=== PATIENT | male | born 1960 | race Caucasian/White ===

== ENCOUNTER 2022-11-24 22:21 | Emergency (ER) | payer BC, MEDICAID, SELFPAY ==
[2022-11-24 22:29] VITALS: BP 114/78; PULSE 81; RESP 16; TEMP 36.7; O2SAT 99; BMI 20.4
[2022-11-24 22:52] LABS: Glucose Point of Care > 600 mg/dL (70-110)
[2022-11-24 22:57] LABS: ABG PCO2 35.1 mmHg (35-45); ABG PH Result 7.46 (7.35-7.45); Arterial Blood Gas Hematocrit 39.7 % (42-52); Base Excess ABG 1.4 mmol/L (-2.0-2.0); Blood Gas Allen Test Pos; Blood Gas Sample Site Radial, right; Blood Gas Sample Type Arterial
--- NOTE | 2022-11-24 23:16 | ED_ITS ---
HPI - General Adult General: Chief complaint: General Medical Stated complaint: Blood surgar of 600 hour ago Time Seen by Provider: 11/24/22 22:46 Source: patient Mode of arrival: ambulatory Limitations: no limitations History of Present Illness: 62-year-old male who has been incarcerated for 6 months he states he has long history of diabetes but has not taken any diabetic meds for 2 years states that today he is having some slight dizziness to check his blood sugar was over 600 he states he does have a very high starch diet he has no other complaints at this time. Associated symptoms: Deny chest pain, dyspnea, headache(s), nausea, rash or vomiting Review of Systems Const: Denies: fever(s) or chills Eyes: Denies: blurry vision or eye discomfort ENMT: Denies: throat pain or dental pain Card: Denies: chest pain Resp: Denies: dyspnea GI: Denies: abdominal pain, nausea, vomiting or diarrhea : Denies: dysuria Musc: Denies: neck pain or back pain Skin/Breast: Denies: rash Neuro: Reports: dizziness; Denies: headache(s) Physical Exam Const: COMMON NORMALS: no acute distress, patient oriented x3 and healthy appe aring HENMT: COMMON NORMALS: normocephalic and atraumatic HEAD & SCALP: normocephalic and atraumatic Neck/C-Spine: COMMON NORMALS: full ROM and supple Chest: COMMONS NORMALS: normal inspection of the chest and normal palpation of entire chest wall Resp: COMMON NORMALS: normal respiratory effort, No retractions, No use of accessory muscles and clear to auscultation bilaterally AUSCULTATION: clear to auscultation bilaterally Cardio: COMMON NORMALS: regular rate, regular rhythm and No murmurs present (Cardio) RATE: regular rate RHYTHM: regular rhythm GI: COMMON NORMALS: Normal to inspection, nondistended, normoactive bowel sounds present, Soft to palpation, non-tender and no masses PALPATION: Yes Soft to palpation Extremity: COMMON NORMALS: normal to inspection and full ROM Neuro: COMMON NORMALS: patient oriented x3, moves all extremities and no focal motor deficits Psych: COMMON NORMALS: mental status grossly normal, Normal thought process present and cooperative THOUGHT PROCESS: Normal thought process present Skin: COMMON NORMALS: no rashes or lesions noted and no wounds GENERAL SKIN EXAM: no rashes or lesions noted Course Vital Signs: Vital signs: Vital Signs Temperature 98.0 F 11/24/22 22:29 Pulse Rate 79 11/25/22 01:42 Respiratory Rate 16 11/25/22 01:42 Blood Pressure 111/73 11/25/22 01:42 Pulse Oximetry 98 11/25/22 01:42 MDM - General Adult Medical Decision Making Patient presents with hyperglycemia his blood sugar here is improved slightly been going on for some time his hemoglobin 1 AC is 13 he otherwise well-aleyda earing is a slight neutropenia we will start him on Lantus and metformin I informed him he needs to follow-up with PCP as well return if worsening. Medical Records I reviewed the patient's medical records. Lab Data I reviewed the patient's lab results. 11/24/22 23:33 11/24/22 23:33 Radiology Impressions Chest X-Ray 11/25/22 00:22 IMPRESSION: No acute cardiopulmonary disease. Laboratory Results WBC 2.6 10^3/uL (4.0-10.0) L 11/24/22 23:33 RBC 3.87 10^6/uL (4.1-5.3) L 11/24/22 23:33 Hgb 12.9 g/dL (11.7-16.6) 11/24/22 23:33 Hct 36.3 % (42.0-52.0) L 11/24/22 23:33 MCV 93.8 fl (80-94) 11/24/22 23:33 MCH 33.3 pg (28.0-34.0) 11/24/22 23: MCHC 35.5 g/dL (30.0-36.0) 11/24/22 23:33 RDW 13.9 % (12.1-15.1) 11/24/22 23:33 Plt Count 52 10^3/cmm (130-400) L 11/24/22 23:33 MPV 11.2 fL (7.4-10.4) H 11/24/22 23:33 Neut % (Auto) 36.2 % 11/24/22 23:33 Lymph % (Auto) 60.3 % 11/24/22 23:33 [place] % (Auto) 2.3 % 11/24/22 23:33 Eos % (Auto) 0.0 % 11/24/22 23:33 Baso % (Auto) 0.4 % 11/24/22 23:33 Neut # (Auto) 0.93 10^3/uL (1.8-7.7) L* 11/24/22 23:33 Lymph # (Auto) 1.6 10^3/uL (0.8-4.8) 11/24/22 23:33 [place] # (Auto) 0.1 10^3/uL (0.2-0.9) L 11/24/22 23:33 Eos # (Auto) 0.0 10^3/uL (0.0-0.8) 11/24/22 23: Baso # (Auto) 0.0 10^3/uL (0.0-0.1) 11/24/22 23:33 Nucleated RBC % (auto) 0 % 11/24/22 23: Nucleated RBCs # 0.0 /100WBC 11/24/22 23:33 Specimen Type Arterial 11/24/22 22:48 Sample Site Radial, right 11/24/22 22:48 ABG pH 7.46 (7.35-7.45) H 11/24/22 22:48 ABG pCO2 35.1 mmHg (35-45) 11/24/22 22:48 ABG pO2 96.0 mmHg (80.0-100.0) 11/24/22 22:48 ABG HCO3 25.0 mmol/L (22-26) 11/24/22 22:48 ABG Base Excess 1.4 mmol/L (-2.0-2.0) 11/24/22 22:48 Nestor Test Pos 11/24/22 22:48 Hematocrit 39.7 % (42-52) L 11/24/22 22:48 O2 Delivery Device None 11/24/22 22:48 FiO2 21.0 % 11/24/22 22:48 Court Specialist ID [email or web address] 11/24/22 22:48 Sodium 135 mmol/L (136-145) L 11/24/22 23:33 Potassium 4.1 mmol/L (3.5-5.1) 11/24/22 23:33 Chloride 100 mmol/L (98-107) 11/24/22 23:33 Carbon Dioxide 29 mmol/L (22-29) 11/24/22 23:33 Anion Gap 10.1 (5-19) 11/24/22 23:33 BUN 8 mg/dL (8-23) 11/24/22 23:33 Creatinine 0.7 mg/dL (0.7-1.2) 11/24/22 23:33 GFR Calculation 115.0 mL/min (90-130) 11/24/22 23:33 Glucose 823 mg/dL (65-115) H* 11/24/22 23:33 POC Glucose 417 mg/dL (70-110) H 11/25/22 01:33 Estimat Average Glucose 349 11/24/22 23:33 Hemoglobin A1c 13.8 % (4.0-6.0) H 11/24/22 23:33 Calculated Osmolality 319 mOsm/kg (285-295) H 11/24/22 23:33 Calcium 8.8 mg/dL (8.5-10.5) 11/24/22 23:33 Total Bilirubin 2.1 mg/dL (0.15-1.2) H 11/24/22 23:33 AST 51 U/L (0-40) H 11/24/22 23:33 ALT 36 U/L (0-41) 11/24/22 23:33 Alkaline Phosphatase 349 U/L (40-130) H 11/24/22 23:33 Total Protein 7.0 g/dL (6.6-8.7) 11/24/22 23:33 Albumin 3.2 g/dL (3.5-5.2) L 11/24/22 23:33 Globulin 3.8 g/dL (1.3-4.6) 11/24/22 23:33 Serum Ketones Negative (Negative) 11/24/22 23:33 Discharge Plan Discharge Patient Disposition: Home Clinical Impression: Hyperglycemia Condition: Stable Prescriptions: New metformin 500 mg tablet 500 mg PO BID Qty: 60 0RF Lantus U-100 Insulin 100 unit/mL solution 10 unit SUBCUT QPM Qty: 10 3RF Discharge Orders: Discharge ED (Routine); Ordered 11/25/22 Ordered By: Allyson Jj Discharge Diet: Advance as tolerated Discharge Activity: Resume usual activity Patient Instructions: Diabetic Hyperglycemia (ED) Coding Level of Care Code ED [employer]p [employer] for Chg Curt
[2022-11-24] MEDS: sodium chloride 0.9% 1,000 ML 999 ML IV (23:22)
[2022-11-24] MEDS: insulin regular-human 100 units/1 mL 15 UNIT IVP (23:23)
[2022-11-24 23:39] LABS: Basophils % 0.4 %; Hematocrit 36.3 % (42.0-52.0); Hemoglobin 12.9 g/dL (11.7-16.6); Lymphocytes # 1.6 10^3/uL (0.8-4.8); Lymphocytes % 60.3 %; Mean Corpuscular HGB Conc 35.5 g/dL (30.0-36.0); Mean Corpuscular Hemoglobin 33.3 pg (28.0-34.0); Mean Corpuscular Volume 93.8 fl (80-94); Mean Platelet Volume 11.2 fL (7.4-10.4); Monocytes # 0.1 10^3/uL (0.2-0.9); Monocytes % 2.3 %; Neutrophils % 36.2 %; Nucleated Red Blood Cells % 0 %; Platelet Count 52 10^3/cmm (130-400); Red Blood Count 3.87 10^6/uL (4.1-5.3); Red Cell Distribution Width 13.9 % (12.1-15.1); White Blood Count 2.6 10^3/uL (4.0-10.0)
[2022-11-24 23:52] LABS: Ketone (Acetest) Serum Negative (Negative)
[2022-11-25 00:03] VITALS: BP 105/67; PULSE 74; RESP 16; O2SAT 99
[2022-11-25 00:03] LABS: Glucose Point of Care > 600 mg/dL (70-110)
[2022-11-25 00:06] LABS: Alanine Aminotransferase 36 U/L (0-41); Anion Gap 10.1 (5-19); Blood Urea Nitrogen 8 mg/dL (8-23); Calcium 8.8 mg/dL (8.5-10.5); Carbon Dioxide 29 mmol/L (22-29); Chloride 100 mmol/L (98-107); Globulin 3.8 g/dL (1.3-4.6); Potassium 4.1 mmol/L (3.5-5.1); Slide Review Slide Review Perform
[2022-11-25] MEDS: insulin regular-human 100 units/1 mL 10 UNIT IVP (00:06)
[2022-11-25 00:07] LABS: Neutrophils # 0.93 10^3/uL (1.8-7.7)
[2022-11-25 00:16] LABS: Albumin Level 3.2 g/dL (3.5-5.2); Alkaline Phosphatase 349 U/L (40-130); Aspartate Amino Transferase 51 U/L (0-40); Osmolality Calculated 319 mOsm/kg (285-295); Sodium 135 mmol/L (136-145); Total Bilirubin 2.1 mg/dL (0.15-1.2)
[2022-11-25 00:18] LABS: Glucose 823 mg/dL (65-115)
--- NOTE | 2022-11-25 00:22 | XRR_ITS ---
PROCEDURE INFORMATION: Exam: XR Chest Exam date and time: 11/25/2022 12:28 AM Age: 62 years old Clinical indication: Other: Hyperglycemia TECHNIQUE: Imaging protocol: Radiologic exam of the chest. Views: 1 view. COMPARISON: No relevant prior studies available. FINDINGS: Lungs: There are no infiltrates. Pleural spaces: There are no pleural effusions. There is no pneumothorax. Heart/Mediastinum: Cardiac mediastinal silhouette is within normal limits. Vasculature: The descending thoracic aorta is prominent. Bones/joints: There is degenerative disease of the joints with no fractures noted. Intraperitoneal space: There is no free intraperitoneal air. XR/XR chest 1V portable [id number] IMPRESSION: No acute cardiopulmonary disease.
[2022-11-25] MEDS: sodium chloride 0.9% 1,000 ML 999 ML IV (00:29)
[2022-11-25 00:44] LABS: Glucose Point of Care 513 mg/dL (70-110)
[2022-11-25 01:36] LABS: Glucose Point of Care 417 mg/dL (70-110)
[2022-11-25] MEDS: insulin regular-human 100 units/1 mL 8 UNIT IVP (01:40)
[2022-11-25 01:42] VITALS: BP 111/73; PULSE 79; RESP 16; O2SAT 98
[2022-11-25 01:57] LABS: Estmated Average Glucose 349; Hemoglobin A1C 13.8 % (4.0-6.0)
[2022-11-25 02:00] VITALS: BP 105/69; PULSE 88; RESP 16; O2SAT 99
== END 2022-11-25 02:15 | disposition home or self-care (01) ==
PROVIDERS: Emergency Provider Emergency Medicine
DX: E11.65 Type 2 diabetes mellitus with hyperglycemia (principal)
CPT/HCPCS: 36415; 36416; 36600; 71045; 80053; 82009; 82803; 82962; 83036; 85025; 96374; 96376; 99284; J1815; J7030

== ENCOUNTER 2022-11-26 03:39 | Inpatient (IN) | payer BC, MEDICAID, SELFPAY ==
[2022-11-26] VITALS (26 sets, daily range): BP systolic 84–118; BP diastolic 62–85; PULSE 63–86; RESP 12–39; TEMP 36.4–36.6; O2SAT 91–99; BMI 22.4
--- NOTE | 2022-11-26 03:44 | XRR_ITS ---
PROCEDURE INFORMATION: Exam: XR Chest Exam date and time: 11/26/2022 3:47 AM Age: 62 years old Clinical indication: Other: AMS; Patient HX: Arrival via EMS for severe confusion and unresponsiveness. TECHNIQUE: Imaging protocol: Radiologic exam of the chest. Views: 1 view. COMPARISON: CR (CHEST, ) 11/25/2022 12:28 AM FINDINGS: Lungs: There are low lung volumes. Otherwise, the lungs are clear. Pleural spaces: Unremarkable. No pleural effusion. No pneumothorax. Heart/Mediastinum: Unremarkable. No cardiomegaly. Bones/joints: Unremarkable. XR/XR chest 1V portable [id number] IMPRESSION: There are low lung volumes. Otherwise, the lungs are clear.
--- NOTE | 2022-11-26 03:44 | CTR_ITS ---
PROCEDURE INFORMATION: Exam: CTA Head With Contrast, Arteriography Exam date and time: 11/26/2022 4:15 AM Age: 62 years old Clinical indication: Stroke-like symptoms; Altered mental status/memory loss and drowsines/somnolence; Additional info: CVA TECHNIQUE: Imaging protocol: Computed tomographic angiography of the head with contrast. Exam focused on the arteries. 3D rendering (Not supervised by radiologist): MIP and/or 3D reconstructed images were created by the technologist. Radiation optimization: All CT scans at this facility use at least one of these dose optimization techniques: automated exposure control; mA and/or kV adjustment per patient size (includes targeted exams where dose is matched to clinical indication); or iterative reconstruction. Contrast material: OMNI 350; Contrast volume: 100 ml; Contrast route: INTRAVENOUS (IV); REPORTING DATA: Count of CT and Cardiac NM exams in prior 12 months: This patient has received 0 known CTs and 0 known cardiac nuclear medicine studies in the 12 months prior to the current study. COMPARISON: CT head wo con* [id number] 11/26/2022 4:12 AM RADIATION DOSE METRICS: Total DLP (mGy-cm): 430.51 FINDINGS: ANTERIOR CIRCULATION: Right internal carotid artery: Intracranial segment is patent with no significant stenosis. No aneurysm. Right middle cerebral artery: No occlusion or significant stenosis. No aneurysm. Right anterior cerebral artery: No occlusion or significant stenosis. No aneurysm. Left internal carotid artery: Intracranial segment is patent with no significant stenosis. No aneurysm. Left middle cerebral artery: No occlusion or significant stenosis. No aneurysm. Left anterior cerebral artery: No occlusion or significant stenosis. No aneurysm. POSTERIOR CIRCULATION: Right vertebral artery: No occlusion or significant stenosis. No aneurysm. Left vertebral artery: No occlusion or significant stenosis. No aneurysm. Basilar artery: No occlusion or significant stenosis. No aneurysm. Right posterior cerebral artery: No occlusion or significant stenosis. No aneurysm. Left posterior cerebral artery: No occlusion or significant stenosis. No aneurysm. Brain: No definite mass, mass effect, or midline shift. Cerebral ventricles: No ventriculomegaly. Bones/joints: Unremarkable. No acute fracture. Soft tissues: Unremarkable. PROCEDURE INFORMATION: Exam: CTA Neck With Contrast Exam date and time: 11/26/2022 4:15 AM Age: 62 years old Clinical indication: Stroke-like symptoms; Altered mental status/memory loss and drowsines/somnolence; Additional info: CVA TECHNIQUE: Imaging protocol: Computed tomographic angiography of the neck with contrast. 3D rendering (Not supervised by radiologist): MIP and/or 3D reconstructed images were created by the technologist. Radiation optimization: All CT scans at this facility use at least one of these dose optimization techniques: automated exposure control; mA and/or kV adjustment per patient size (includes targeted exams where dose is matched to clinical indication); or iterative reconstruction. Contrast material: OMNI 350; Contrast volume: 100 ml; Contrast route: INTRAVENOUS (IV); REPORTING DATA: Count of CT and Cardiac NM exams in prior 12 months: This patient has received 0 known CTs and 0 known cardiac nuclear medicine studies in the 12 months prior to the current study. COMPARISON: CT head wo con* [id number] 11/26/2022 4:12 AM RADIATION DOSE METRICS: Total DLP (mGy-cm): 430.51 FINDINGS: Right common carotid artery: No stenosis. No dissection or occlusion. Right internal carotid artery: No stenosis of the extracranial segment. No dissection or occlusion. Right external carotid artery: No occlusion or stenosis of the origin. Left common carotid artery: No stenosis. No dissection or occlusion. Left internal carotid artery: No stenosis of the extracranial segment. No dissection or occlusion. Left external carotid artery: No occlusion or stenosis of the origin. Right vertebral artery: No stenosis. No dissection or occlusion. Left vertebral artery: No stenosis. No dissection or occlusion. Soft tissues: Normal. No significant soft tissue swelling. Bones/joints: No acute fracture. CT/CT angio headneck* [id number] IMPRESSION: No large vessel occlusion or stenosis. IMPRESSION: No vascular stenosis, occlusion or dissection. REFERENCES: NASCET CRITERIA. The degree of stenosis in the cervical segment of the internal carotid artery is based on NASCET criteria. Normal is no stenosis. Mild is less than 50% stenosis. Moderate is 50-69% stenosis. Severe is 70% to 99% stenosis. Total occlusion is no detectable patent lumen.
--- NOTE | 2022-11-26 03:44 | CTR_ITS ---
PROCEDURE INFORMATION: Exam: CT Head Without Contrast Exam date and time: 11/26/2022 4:12 AM Age: 62 years old Clinical indication: Stroke-like symptoms; Altered mental status/memory loss and drowsines/somnolence; Additional info: Arrival via EMS for severe confusion and unresponsiveness. TECHNIQUE: Imaging protocol: Computed tomography of the head without contrast. Radiation optimization: All CT scans at this facility use at least one of these dose optimization techniques: automated exposure control; mA and/or kV adjustment per patient size (includes targeted exams where dose is matched to clinical indication); or iterative reconstruction. Other technique: STROKE PROTOCOL was implemented. REPORTING DATA: Count of CT and Cardiac NM exams in prior 12 months: This patient has received 0 known CTs and 0 known cardiac nuclear medicine studies in the 12 months prior to the current study. COMPARISON: No relevant prior studies available. RADIATION DOSE METRICS: Total DLP (mGy-cm): 931 FINDINGS: Brain: No cerebral/cerebellar infarct. No brain parenchymal or extra-axial hemorrhage. Cerebral ventricles: No ventriculomegaly. Paranasal sinuses: Mucosal thickening present in both maxillary sinuses. Mastoid air cells: Visualized mastoid air cells are clear. Bones/joints: Unremarkable. No acute fracture. Soft tissues: Unremarkable. CT/CT head wo con* [id number] IMPRESSION: No acute infarct or hemorrhage. ASSESSMENT: ASPECTS ([place] Stroke Program Early CT Score) is 10.
--- NOTE | 2022-11-26 03:45 | ECG_ITS ---
[facility] Test Date: 2022-11-26 Pat Name: Poncho Marshall Department: Room: Gender: Male [employer]ographic [employer] Fe[employer]: : [id number] Requested By: Allyson Jj Order Number: [id number] Trisha MD: Corey Velásquez M.D. Measurements Intervals [place] Rate: 78 P: 0 IA: 0 QRS: 35 QRSD: 108 T: 53 QT: 396 QTc: 452 Interpretive Statements ATRIAL FIBRILLATION WITH ABERRANT CONDUCTION OR VENTRICULAR PREMATURE COMPLEXES LOW QRS VOLTAGE IN EXTREMITY LEADS [QRS DEFLECTION < 0.5 mV IN LIMB LEADS] NONSPECIFIC T-WAVE ABNORMALITY ABNORMAL RHYTHM ECG No previous ECG available for comparison Electronically Signed On 11-26-2022 9:24:10 CDT by Corey Velásquez M.D. [id number]
--- NOTE | 2022-11-26 03:47 | W.ED.AMS ---
HPI - Altered Mental Status General: Chief Complaint: Altered Mental Status Stated Complaint: HIGH BLOOD SUGAR Time Seen by Provider: 11/26/22 03:41 Source: EMS Mode of arrival: EMS Limitations: altered mental status History of Present Illness: 62-year-old male who is here from the long-term. He was seen last night for hyperglycemia patient's blood sugars improved he is not in DKA did prescribe him Lantus and metformin [facility] states that they have been giving his Lantus but states that the inmates and informed him that he is urinating all over and was altered gel staff here states that he was last seen normal around 7 to 8 PM. They checked his blood sugar it was at 500. Patient here is able to tell me his name he is very confused otherwise will not really follow any commands no known recent injuries no fevers. Review of Systems General: Reports: ROS unobtainable due to mental status Physical Exam Const: COMMON NORMALS: negative for patient oriented x3 EXAM LIMITATIONS: altered mental status HENMT: COMMON NORMALS: normocephalic and atraumatic HEAD & SCALP: normocephalic and atraumatic Eye: COMMON NORMALS: Equal, round and reactive pupils present and EOMs intact bilaterally PUPIL: Yes Equal, round and reactive pupils present Neck/C-Spine: COMMON NORMALS: supple Chest: COMMONS NORMALS: normal inspection of the chest and normal palpation of entire chest wall Resp: COMMON NORMALS: normal respiratory effort and clear to auscultation bilaterally AUSCULTATION: clear to auscultation bilaterally Cardio: COMMON NORMALS: regular rate and regular rhythm RATE: regular rate RHYTHM: regular rhythm GI: COMMON NORMALS: Normal to inspection, nondistended, normoactive bowel sounds present, Soft to palpation and non-tender PALPATION: Yes Soft to palpation Extremity: COMMON NORMALS: normal to inspection Neuro: COMMON NORMALS: negative for patient oriented x3 Psych: COMMON NORMALS: negative for mental status grossly normal Skin: COMMON NORMALS: no rashes or lesions noted GENERAL SKIN EXAM: no rashes or lesions noted Course Vital Signs: Vital signs: Vital Signs Temperature 97.7 F 11/26/22 03:41 Pulse Rate 77 11/26/22 03:41 Respiratory Rate 18 11/26/22 03:41 Blood Pressure 106/82 11/26/22 03:41 Pulse Oximetry 97 11/26/22 03:41 Oxygen Delivery Me thod Room Air 11/26/22 03:41 MDM - Altered Mental Status Medical Decision Making Patient presents here with altered mental status last known normal 6 PM patient is altered when I saw him yesterday he was answering all questions appropriately senior financial states that he had been normal throughout the day as well he is hyperglycemic he is neutropenic again with some thrombocytopenia CT shows no signs of stroke he has no fever no signs of infection spoke to the hospitalist will admit to the ICU at this time Medical Records I reviewed the patient's medical records. Lab Data I reviewed the patient's lab results. 11/26/22 03:48 11/26/22 03:48 Radiology Impressions Chest X-Ray 11/26/22 03:44 IMPRESSION: There are low lung volumes. Otherwise, the lungs are clear. Head CT 11/26/22 03:44 IMPRESSION: No acute infarct or hemorrhage. ASSESSMENT: ASPECTS ([place] Stroke Program Early CT Score) is 10. Head/Neck CTA 11/26/22 03:44 IMPRESSION: No large vessel occlusion or stenosis. IMPRESSION: No vascular stenosis, occlusion or dissection. REFERENCES: NASCET CRITERIA. The degree of stenosis in the cervical segment of the internal carotid artery is based on NASCET criteria. Normal is no stenosis. Mild is less than 50% stenosis. Moderate is 50-69% stenosis. Severe is 70% to 99% stenosis. Total occlusion is no detectable patent lumen. Laboratory Results WBC 2.9 10^3/uL (4.0-10.0) L 11/26/22 03:48 RBC 3.56 10^6/uL (4.1-5.3) L 11/26/22 03:48 Hgb 11.7 g/dL (11.7-16.6) 11/26/22 03:48 Hct 33.3 % (42.0-52.0) L 11/26/22 03:48 MCV 93.5 fl (80-94) 11/26/22 03:48 MCH 32.9 pg (28.0-34.0) 11/26/22 03:48 MCHC 35.1 g/dL (30.0-36.0) 11/26/22 03:48 RDW 14.2 % (12.1-15.1) 11/26/22 03:48 Plt Count 47 10^3/cmm (130-400) L 11/26/22 03:48 MPV 11.0 fL (7.4-10.4) H 11/26/22 03:48 Neut % (Auto) 32.5 % 11/26/22 03:48 Lymph % (Auto) 53.9 % 11/26/22 03:48 [place] % (Auto) 11.3 % 11/26/22 03:48 Eos % (Auto) 0.3 % 11/26/22 03:48 Baso % (Auto) 1.0 % 11/26/22 03:48 Neut # (Auto) 0.95 10^3/uL (1.8-7.7) L* 11/26/22 03:48 Lymph # (Auto) 1.6 10^3/uL (0.8-4.8) 11/26/22 03:48 [place] # (Auto) 0.3 10^3/uL (0.2-0.9) 11/26/22 03:48 Eos # (Auto) 0.0 10^3/uL (0.0-0.8) 11/26/22 03:48 Baso # (Auto) 0.0 10^3/uL (0.0-0.1) 11/26/22 03:48 Nucleated RBC % (auto) 0 % 11/26/22 03:48 Nucleated RBCs # 0.0 /100WBC 11/26/22 03:48 Specimen Type Arterial 11/26/22 04:25 Sample Site Radial, right 11/26/22 04:25 ABG pH 7.40 (7.35-7.45) 11/26/22 04:25 ABG pCO2 36.5 mmHg (35-45) 11/26/22 04:25 ABG pO2 85.5 mmHg (80.0-100.0) 11/26/22 04:25 ABG HCO3 22.5 mmol/L (22-26) 11/26/22 04:25 ABG Base Excess -1.9 mmol/L (-2.0-2.0) 11/26/22 04:25 Nestor Test Pos 11/26/22 04:25 Hematocrit 35.0 % (42-52) L 11/26/22 04:25 O2 Delivery Device None 11/26/22 04:25 FiO2 21.0 % 11/26/22 04:25 Nurse Supervisor ID [email or web address] 11/26/22 04:25 Sodium 137 mmol/L (136-145) 11/26/22 03:48 Potassium 3.9 mmol/L (3.5-5.1) 11/26/22 03:48 Chloride 103 mmol/L (98-107) 11/26/22 03:48 Carbon Dioxide 24 mmol/L (22-29) 11/26/22 03:48 Anion Gap 13.9 (5-19) 11/26/22 03:48 BUN 6 mg/dL (8-23) L 11/26/22 03:48 Creatinine 0.6 mg/dL (0.7-1.2) L 11/26/22 03:48 GFR Calculation 137.4 mL/min (90-130) H 11/26/22 03:48 Glucose 471 mg/dL (65-115) H 11/26/22 03:48 Calculated Osmolality 302 mOsm/kg (285-295) H 11/26/22 03:48 Calcium 8.4 mg/dL (8.5-10.5) L 11/26/22 03:48 Total Bilirubin 2.3 mg/dL (0.15-1.2) H 11/26/22 03:48 AST 53 U/L (0-40) H 11/26/22 03:48 ALT 36 U/L (0-41) 11/26/22 03:48 Alkaline Phosphatase 312 U/L (40-130) H 11/26/22 03:48 Troponin T Baseline 10 ng/L (0-15) 11/26/22 03:48 Total Protein 6.2 g/dL (6.6-8.7) L 11/26/22 03:48 Albumin 2.9 g/dL (3.5-5.2) L 11/26/22 03:48 Globulin 3.3 g/dL (1.3-4.6) 11/26/22 03:48 Urine Color Yellow (Yellow) 11/26/22 04:02 Urine Appearance Clear (CLEAR) 11/26/22 04:02 Urine pH 7 (5-7) 11/26/22 04:02 Ur Specific [place] 1.010 (1.005-1.030) 11/26/22 04:02 Urine Protein Neg (Negative) 11/26/22 04:02 Urine Glucose (UA) 4+ (Normal) H 11/26/22 04:02 Urine Ketones Negative (Negative) 11/26/22 04:02 Urine Blood Neg (Negative) 11/26/22 04:02 Urine Nitrate Negative (Negative) 11/26/22 04:02 Urine Bilirubin Neg (Negative) 11/26/22 04:02 Urine Urobilinogen Neg mg/dL (Negative) 11/26/22 04:02 Ur Leukocyte Esterase Negative (Negative) 11/26/22 04:02 Discharge Plan Discharge Patient Disposition: Admitted As Inpatient Clinical Impression: Hyperglycemia, AMS (altered mental status), Neutropenia Condition: Stable Prescriptions: No Action metformin 500 mg tablet 500 mg PO BID Qty: 60 0RF Lantus U-100 Insulin 100 unit/mL solution 10 unit SUBCUT QPM Qty: 10 3RF Patient Instructions: Hyponatremia (ED), Benzodiazepine Use Disorder (ED), Dementia (ED), Non-diabetic Hypoglycemia (ED), Hypoglycemia in a Person with Diabetes (ED), Concussion (ED), Alcohol Intoxication (ED), Subarachnoid Hemorrhage (GEN), Altered Mental Status (ED) Coding Level of Care Code 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
[2022-11-26] MEDS: sodium chloride 0.9% 1,000 ML 999 ML IV ×2 (03:51→06:08)
[2022-11-26] MEDS: insulin regular-human 100 units/1 mL 10 UNIT IVP (03:51)
[2022-11-26 03:53] LABS: Eosinophils % 0.3 %; Hematocrit 33.3 % (42.0-52.0); Hemoglobin 11.7 g/dL (11.7-16.6); Lymphocytes # 1.6 10^3/uL (0.8-4.8); Lymphocytes % 53.9 %; Mean Corpuscular HGB Conc 35.1 g/dL (30.0-36.0); Mean Corpuscular Hemoglobin 32.9 pg (28.0-34.0); Mean Corpuscular Volume 93.5 fl (80-94); Monocytes # 0.3 10^3/uL (0.2-0.9); Monocytes % 11.3 %; Neutrophils % 32.5 %; Nucleated Red Blood Cells % 0 %; Platelet Count 47 10^3/cmm (130-400); Red Blood Count 3.56 10^6/uL (4.1-5.3); Red Cell Distribution Width 14.2 % (12.1-15.1); White Blood Count 2.9 10^3/uL (4.0-10.0)
[2022-11-26] MEDS: LORazepam 2 mg/mL INJ 1 mL 1 MG IVP (04:05)
[2022-11-26 04:06] LABS: Neutrophils # 0.95 10^3/uL (1.8-7.7)
--- NOTE | 2022-11-26 04:07 | PC.NURSE ---
Critical lab value reported to Dr Jj.
[2022-11-26 04:16] LABS: Troponin(5th) Baseline 10 ng/L (0-15)
[2022-11-26 04:18] LABS: Alanine Aminotransferase 36 U/L (0-41); Albumin Level 2.9 g/dL (3.5-5.2); Alkaline Phosphatase 312 U/L (40-130); Anion Gap 13.9 (5-19); Aspartate Amino Transferase 53 U/L (0-40); Blood Urea Nitrogen 6 mg/dL (8-23); Calcium 8.4 mg/dL (8.5-10.5); Carbon Dioxide 24 mmol/L (22-29); Chloride 103 mmol/L (98-107); Globulin 3.3 g/dL (1.3-4.6); Glomerular Filtration Rate 137.4 mL/min (90-130); Glucose 471 mg/dL (65-115); Osmolality Calculated 302 mOsm/kg (285-295); Potassium 3.9 mmol/L (3.5-5.1); Sodium 137 mmol/L (136-145); Total Bilirubin 2.3 mg/dL (0.15-1.2); Total Protein 6.2 g/dL (6.6-8.7)
[2022-11-26 04:25] LABS: Add Urine Microscopic? NO; Charge for UA Resulting for Rev
[2022-11-26] MEDS: iohexol 350 mg/mL 500 mL Btl (per mL) IV (04:26)
[2022-11-26 04:36] LABS: ABG PCO2 36.5 mmHg (35-45); Base Excess ABG -1.9 mmol/L (-2.0-2.0); Blood Gas Allen Test Pos; Blood Gas Sample Site Radial, right; Blood Gas Sample Type Arterial; HCO3 ABG 22.5 mmol/L (22-26); PO2 ABG 85.5 mmHg (80.0-100.0)
[2022-11-26 04:43] LABS: Bilirubin Urine Neg (Negative); Blood Urine Neg (Negative); Glucose Urine UA 4+ (Normal); Ketones Urine Negative (Negative); Leukocyte Esterase Urine Negative (Negative); Nitrate Urine Negative (Negative); Protein Urine Neg (Negative); Urine Appearance Clear (CLEAR); Urine Color Yellow (Yellow); Urobilinogen Urine Neg (Negative); pH Urine 7 (5-7)
--- NOTE | 2022-11-26 04:54 | P.HP_ITS ---
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 As per the arnold patient was fine until this evening when became confused, patient started urinating all over, he was being aggressive and noncooperative. In the ER he was given Ativan for CT head imaging at the time of my evaluation he is not able provide much history Most of the information has been taken from the collaterals and the ER physician. Patient is neutropenic, I have started doxycycline, tick panel sent Abnormal transaminases high bilirubin noted, requested CT abdomen pelvis As per the arnold when asked about tick bites he stated that when Mr. Marshall was infested with ticks all over when he presented to the correction few weeks ago but they have not noticed a recent tick on his body Review of Systems General: Reports: ROS unobtainable due to mental status Medications/Allergies Home Medications Medication Instructions Recorded Confirmed Last Taken Type insulin glargine 100 unit/mL 10 unit (0.1 mL) SUBCUT QPM #10 mL 11/25/22 Unknown Rx subcutaneous solution (Lantus U-100 Insulin) metformin 500 mg tablet 500 mg PO BID #60 tabs 11/25/22 Unknown Rx Vitals/I&O/Wt Last Vital Signs Temp 97.7 F 11/26/22 03:41 Pulse 77 11/26/22 03:41 Resp 18 11/26/22 03:41 BP 106/82 11/26/22 03:41 Pulse Ox 97 11/26/22 03:41 O2 Del Method Room Air 11/26/22 03:41 Weight last 48 hrs Weight 77.111 kg Physical Exam Narrative: Patient is drowsy Pupils are reactive to light and symmetrical In deep sleep Responsive to painful stimuli Currently on room air Abdomen soft, bowel sound present Lower extremity no edema Neuro exam is limited No active posturing Dry mucous membranes Clinically dehydrated Data 11/26/22 03:48 11/26/22 03:48 A&P Assessment and plan (1) Hyperglycemia: (2) AMS (altered mental status): (3) Neutropenia: Plan Metabolic encephalopathy Patient is afebrile Concern for meningitis is low Considering abnormal transaminases high bilirubin thrombocytopenia and leukopenia I will start patient on doxycycline and request tick panel Drug screen negative Head CT unremarkable Metabolic encephalopathy likely related to hyperglycemia, rule out tick related symptoms No signs of UTI No signs of DKA Requested CT abdomen pelvis Type 2 diabetes Compliant, has not taken any medication for last 2 years, Hemoglobin A1c above 10 Patient required Lantus and diabetic teaching He was given metformin and Lantus yesterday when he was in the ER Will give him LR bolus I will increase the dose of Lantus keep him on sliding scale Once he is more awake and alert we will start consistent carb diet Full code DVT prophylaxis on board Request D-dimer Attestations Medical Necessity Statement*: Admit to ICU more than 2 midnights anticipated Diagnoses Hyperglycemia R73.9 AMS (altered mental status) R41.82 Neutropenia D70.9
--- NOTE | 2022-11-26 04:55 | CTR_ITS ---
PROCEDURE INFORMATION: Exam: CT Abdomen And Pelvis Without Contrast Exam date and time: 11/26/2022 5:40 AM Age: 62 years old Clinical indication: Abdominal tenderness; Additional info: Abnml live enzymes TECHNIQUE: Imaging protocol: Computed tomography of the abdomen and pelvis without contrast. Radiation optimization: All CT scans at this facility use at least one of these dose optimization techniques: automated exposure control; mA and/or kV adjustment per patient size (includes targeted exams where dose is matched to clinical indication); or iterative reconstruction. REPORTING DATA: Count of CT and Cardiac NM exams in prior 12 months: This patient has received 0 known CTs and 0 known cardiac nuclear medicine studies in the 12 months prior to the current study. COMPARISON: CR (CHEST, ) 11/26/2022 3:47 AM RADIATION DOSE METRICS: Total DLP (mGy-cm): 1642.52 FINDINGS: Liver: Micronodular contour to the liver. This can be seen in cirrhosis Gallbladder and bile ducts: Normal. No calcified stones. No ductal dilation. Pancreas: Normal. No ductal dilation. Spleen: Splenomegaly. There are likely gastric and splenic varicosities. Lymphadenopathy could have a similar appearance. Contrast-enhanced CT is recommended for better evaluation. Adrenal glands: Normal. No mass. Kidneys and ureters: There is retained contrast within the renal collecting system and urinary bladder. Stomach and bowel: Increased stool throughout the colon and rectum. Appendix: No evidence of appendicitis. Intraperitoneal space: Unremarkable. No free air. No significant fluid collection. Vasculature: Unremarkable. No abdominal aortic aneurysm. Lymph nodes: See Spleen finding. Urinary bladder: Retained contrast within the urinary bladder. No mass or filling Reproductive: Unremarkable as visualized. Bones/joints: Unremarkable. No acute fracture. Soft tissues: Unremarkable. CT/CT abdomen pelvis wo con [id number] IMPRESSION: 1. Micronodular contour to the liver which suggests cirrhosis. In addition there is splenomegaly and probable gastric and splenic varicosities. Findings are suggestive of cirrhosis with portal venous hypertension. 2. Large amount of stool throughout the colon.
[2022-11-26 05:10] LABS: Amphetamines Screen Urine Negative (Negative); Barbiturates Screen Urine Negative (Negative); Benzodiazepines Screen Urine Negative (Negative); Cocaine Screen Urine Negative (Negative); Opiate Screen Urine Negative (Negative); PCP Screen Urine Negative (Negative); THC Screen Urine Negative (Negative)
[2022-11-26 05:14] LABS: Alcohol Level < 10 mg/dL (0-10)
[2022-11-26 05:16] LABS: D Dimer 0.85 ug/mIFEU (0-0.59)
--- NOTE | 2022-11-26 05:45 | ECG_ITS ---
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 Measurements Intervals [place] Rate: 77 P: -73 RI: 235 QRS: 46 QRSD: 108 T: 189 QT: 415 QTc: 470 Interpretive Statements SINUS RHYTHM WITH FIRST DEGREE AV BLOCK WITH FREQUENT VENTRICULAR PREMATURE COMPLEXES LOW QRS VOLTAGE IN EXTREMITY LEADS [QRS DEFLECTION < 0.5 mV IN LIMB LEADS] MODERATE T-WAVE ABNORMALITY, CONSIDER INFERIOR ISCHEMIA [-0.1+ mV T-WAVE IN II/aVF] Compared to ECG 11/26/2022 04:30:36 First degree AV block now present Possible ischemia now present Atrial fibrillation no longer present Aberrant conduction of supraventricular beat(s) no longer present T-wave abnormality still present Electronically Signed On 11-26-2022 9:28:40 CDT by Corey Velásquez M.D. [id number]
[2022-11-26 06:08] LABS: Troponin 5 2HR 7.82 ng/L (0-15); Troponin 5 2HR Delta -2.18 ABS# (0-10)
[2022-11-26] MEDS: doxycycline 100 MG in sodium chloride 0.9% (plus) 100 ML IV ×2 (06:12→17:11)
[2022-11-26 06:16] LABS: Thyroid Stimulating Hormone 3.66 uIU/mL (0.27-4.20)
[2022-11-26 06:51] LABS: Glucose Point of Care 507 mg/dL (70-110)
[2022-11-26 06:57] LABS: Glucose Point of Care 387 mg/dL (70-110)
[2022-11-26 06:58] LABS: NT Pro B Type Natriuretic Pept 1189 pg/mL (0-125); Tumor Marker Alpha Fetoprotein 3.6 ng/mL (0-8.3)
[2022-11-26 07:09] LABS: Magnesium 1.6 mg/dL (1.7-2.3)
[2022-11-26] MEDS: sodium chloride 0.9% 1,000 ML 125 ML IV (07:30)
[2022-11-26 07:35] LABS: Ammonia 116 umol/L (16-60)
[2022-11-26 07:52] LABS: Glucose Point of Care 312 mg/dL (70-110)
[2022-11-26 07:57] LABS: HIV 1 & 2 Antibody Non-Reactive (Non-Reactiv); HIV 1 & 2 Antigen Non-Reactive (Non-Reactiv)
[2022-11-26 08:05] LABS: Rapid Plasma Reagin Syphilis Nonreactive (Nonreactive)
[2022-11-26 08:10] LABS: Hepatitis A Antibody IgM Non-Reactive (Nonreactive); Hepatitis B Core AB, Total Non-Reactive (Nonreactive); Hepatitis B Surface AB 103.2 (11.5-1000); Hepatitis B Surface Antigen Non-Reactive (Nonreactive); Hepatitis C Virus Antibody Reactive (Nonreactive)
[2022-11-26] MEDS: insulin lispro 100 unit/1 mL SUBCUT ×3 (08:16→15:10)
[2022-11-26 09:20] LABS: Glucose Point of Care 396 mg/dL (70-110)
--- NOTE | 2022-11-26 09:45 | ECG_ITS ---
[facility] Test Date: 2022-11-26 Pat Name: Poncho Marshall Department: Room: 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 Measurements Intervals [place] Rate: 78 P: 0 MT: 0 QRS: 15 QRSD: 101 T: 10 QT: 396 QTc: 452 Interpretive Statements ATRIAL FIBRILLATION WITH ABERRANT CONDUCTION OR VENTRICULAR PREMATURE COMPLEXES ABNORMAL RHYTHM ECG Compared to ECG 11/26/2022 06:15:49 Aberrant conduction of supraventricular beat(s) now present Sinus rhythm no longer present First degree AV block no longer present T-wave abnormality no longer present Possible ischemia no longer present Electronically Signed On 11-26-2022 9:28:37 CDT by Corey Velásquez M.D. [id number]
--- NOTE | 2022-11-26 10:08 | FL_ITS ---
WS: [id number] LUMBAR PUNCTURE UNDER FLUOROSCOPY: OBTAIN CSF FOR ANALYSIS HISTORY: high concern for meningitis COMPARISON: None available. FLUOROSCOPY TIME: 1min [id number] # of spot films: 1 Procedure, complications, and risk and benefits explained to the patient. Consent was obtained. Recen t laboratory work and medication are reviewed prior to procedure. Labwork was reviewed prior to the examination. Discussed in length with Dr. Aguilar the evaluation. Lab values were discussed on the necessity for proceeding with this procedure despite abnormal plate let and lab values. Skin over the lumbar is cleansed with ChloraPrep and anesthetized with 1% buffered lidocaine. Access into the thecal sac is achieved. CSF is removed in a sterile manner and placed in the sterile tubes. Approximately 8 ml is removed without difficulty. There was a mild cloudy appearance of the aspirated CSF. No blood contamination is evident visually. No complications are encountered. CSF this into the laboratory for analysis as requested. IMPRESSION: Uncomplicated lumbar puncture for CSF. No complications encountered. CSF is transported to lab for analysis as requested.
[2022-11-26] MEDS: magnesium sulfate premix 2 GM/50 ML PIGGYBACK IV (10:25)
[2022-11-26 10:34] LABS: Troponin 5 6HR 13.84 ng/L (0-15); Troponin 5 6HR Delta 3.84 ng/L (0-12)
[2022-11-26 10:50] LABS: Procalcitonin 0.24 ng/mL (0-0.5)
[2022-11-26 11:01] LABS: Iron 68 ug/dL (59-158); Percent Saturation 39.3 % (20-50); Total Iron Binding Capacity 173 mcg/dl; Unsaturated Iron Binding 105 ug/dL (112-347)
[2022-11-26 11:01] LABS: Glucose Point of Care 316 mg/dL (70-110)
[2022-11-26 11:09] LABS: Vitamin B12 > 2000 pg/mL (232-1245)
[2022-11-26 11:10] LABS: Lactate Dehydrogenase 196 U/L (135-225)
--- NOTE | 2022-11-26 11:35 | PC.PHAR ---
[id number] VANC - Standard trough requested. dosing at ~15 mg/kg = 1250 mg q8h. Trough before 4th dose 11/26 @1100 entered.
[2022-11-26 11:44] LABS: INR 1.55 (0.8-1.2)
[2022-11-26 11:45] LABS: Fibrinogen 200 mg/dL (174-498); Partial Thromboplastin Time 32.5 SECONDS (23.9-36.7)
[2022-11-26 11:48] LABS: D Dimer 0.79 ug/mIFEU (0-0.59)
[2022-11-26] MEDS: vancomycin 1,250 MG/250 ML PIGGYBACK 250 MG IV ×2 (12:20→21:45)
[2022-11-26] MEDS: cefTRIAXone 2,000 MG in sodium chloride 0.9% (plus) 50 ML 100 MG IV ×2 (12:20→23:03)
[2022-11-26 12:37] LABS: CSF Specific Gravity 1.007; Cyto Order Verification No Order
[2022-11-26 12:38] LABS: CSF Mononuclear # 0.001 10^3/uL (50-90); Mononuclear WBC CSF % 50 % (50-90); Polynuclear Cells ,CSF # 0.001 10^3/uL (0-10); Polynuclear WBC CSF % 50 % (0-10); Red Blood Cell CSF 0 10^3/uL (0-0); White Blood Cell CSF 2 /uL (0-5)
[2022-11-26 12:47] LABS: Appearance CSF CLEAR (CLEAR); Color CSF COLORLESS (COLORLESS)
[2022-11-26 12:53] LABS: Glucose CSF 240 mg/dL (40-70); Total Protein CSF 62 mg/dL (15-45)
--- NOTE | 2022-11-26 13:49 | PC.NURSE ---
Patient brother, Steve called for update on patient condition. At this time patient is not verbally responsive, no patient information provided. Steve stated the patients parents wanted to visit, Officer at bedside stated they would have to get permission from family law attorney to have visits with patient. Family called and made aware of this.
--- NOTE | 2022-11-26 14:00 | PC.NURSE ---
Officer at bedside states Sheriff Lucian Moreno authorized family to visit patient.
[2022-11-26] MEDS: haloperidol inj 5 mg/mL INJ 1 mL IVP (14:35)
--- NOTE | 2022-11-26 15:35 | P.PN_ITS ---
Subjective Subjective: Admitted overnight. H&P and labs appreciated. On examination patient lying comfortably in bed, somnolent with operations controller at bedside. Patient was given Ativan in the ER for CT imaging. Patient is alexander ntaining his airway. Hemodynamically stable. Saturating well on room air. Blood work appreciated for leukocytopenia, thrombocytopenia along with neutropenia, CMP showing elevated blood glucose, hypomagnesemia, hyperammonemia, transaminitis along with elevated bilirubin. Vitals/I&O/Wt Last Vital Signs Temp 97.7 F 11/26/22 03:41 Pulse 81 11/26/22 07:35 Resp 18 11/26/22 07:35 BP 98/73 11/26/22 05:05 Pulse Ox 98 11/26/22 07:35 O2 Del Method Room Air 11/26/22 07:35 FiO2 40 11/26/22 07:35 11/26/22 11/26/22 11/26/22 06:59 14:59 22:59 Intake Total 1000 / 1000 1862.5 / 1862.5 Balance 1000 / 1000 1862.5 / 1862.5 Weight last 48 hrs Weight 77.111 kg Physical Exam Narrative: General: Somnolent, responding to painful stimulus, maintaining airway HEENT: PERRLA, pupils bilaterally equal and reactive, poor oral hygiene Chest: Normal vesicular breath sounds all over lung mann with occasional rhonchi CVS: S1-S2 regular, no murmurs, no tachycardia, no gallops, no rubs Abdomen: Soft, nontender, no organomegaly, bowel sounds present, morbidly obese Neuro: Difficulty to assess given somnolence Urinary Catheter Management: Elizabeth: Cath Placed During This Visit: yes Urinary Catheter Date of Insertion: 11/26/22 Urinary Catheter Time of Insertion: 12:54 Data 11/26/22 03:48 11/26/22 03:48 Micro: Microbiology 11/26/22 11:40 Gram Stain - Final Cerebrospinal Fluid Cryptococcal Antigen (CSF) - Final 11/26/22 12:02 Bacterial Antigens - Final Cerebrospinal Fluid 11/26/22 05:21 Blood Culture - Preliminary Blood SPECIMEN COLLECTED 11/26/22 05:15 Blood Culture - Preliminary Blood SPECIMEN COLLECTED A&P Assessment and plan (1) AMS (altered mental status): (2) Hyperammonemia: (3) Transaminitis: (4) Thrombocytopenia: (5) Neutropenia: (6) Hyperglycemia: (7) Type 2 diabetes mellitus: (8) Hepatitis C: (9) Liver cirrhosis: Plan [id number] gentleman who was brought in through the [facility] for altered mental status and hyperglycemia found to have leukocytopenia, neutropenia, thrombo cytopenia along with transaminitis and elevated ammonia levels. Assessment: Acute metabolic encephalopathy Hepatic encephalopathy Transaminitis Thrombocytopenia/leukocytopenia/neutropenia Uncontrolled type 2 diabetes mellitus with hyperglycemia without DKA Plan: Metabolic encephalopathy most likely in setting of hepatic encephalopathy but given the presentation with thrombocytopenia, neutropenia along with transaminitis cannot rule out meningitis versus TTP especially given history of multiple tick bites recently which were treated with doxycycline few months ago. Plan for lumbar puncture. Will request radiology. Patient's platelet count is 47,000 without any active sites of bleeding or bruising. It would be important to rule out meningitis at it would change the course of treatment. Discussed high risk lumbar puncture with radiology and Interior Design Director at bedside. Unable to get consent from the patient. No family available. Given urgency of the procedure along with unavailability of critical care and radiology over the weekend plan to go ahead with lumbar puncture. Check for tick panel, VDRL, West Nile, Lyme's disease and cryptococcal antigen along with CSF culture and study. Start on lactulose 10 mg every 6 hourly. Plan for NG tube placement if patient is not awake enough. If unsuccessful we will plan for further rectal administration of lactulose. Monitor ammonia levels daily. CT head negative for acute abnormality on admission. For possibility of meningitis for now start on IV ceftriaxone 2 mg every 12 hourly, IV vancomycin, IV doxycycline 100 mg every 12 hourly. If needed can do Precedex drip. Frequent reorientation. Normal saline at 75 cc/h. Hematological abnormalities along with transaminitis could be in setting of PICC infection versus possible TTP. Check peripheral smear, LDH, haptoglobin, DIC panel. Monitor for bleeding. Cirrhosis: Chronic. Appreciated on CT scan. Management of ammonia levels as above. For uncontrolled type 2 diabetes mellitus continue with insulin sliding scale every 4 hourly as moderate dose protocol along with glargine 20 units every afternoon. Start on carb consistent once patient is more awake. Full code Protonix for PUD prophylaxis Thrombocytopenia along with SCDs for DVT prophylaxis. Hold off on medical prophylaxis. Attestations Medical Necessity Statement*: Requires further hospitalization for management of acute metabolic arthropathy viral meningitis is ruled out, transaminitis with hepatic encephalopathy, thrombocytopenia, neutropenia while further work-up is elevated Coding Level of Care Code Critical Care >/= 30 minutes Critical care time (in minutes): 60 The high probability of a clinically significant, sudden or life threatening deterioration, as referenced in this documentation, required my full and direct attention, intervention and personal management. The critical care time shown is in addition to time spent performing any reported separately billable procedures and includes the following: [x] Data and vital sign review and interpretation [x ] Patient assessment, examination and intervention [x] Medication orders and management [x] Patient/Family updates as able [x] Care Coordination and Documentation. Diagnoses AMS (altered mental status) R41.82 Hyperammonemia E72.20 Transaminitis R74.01 Thrombocytopenia D69.6 Neutropenia D70.9 Hyperglycemia R73.9 Type 2 diabetes mellitus E11.9 Hepatitis C B19.20 Liver cirrhosis K74.60
[2022-11-26 16:03] LABS: Glucose Point of Care 435 mg/dL (70-110)
--- NOTE | 2022-11-26 16:04 | PC.NURSE ---
Multiple attempts to place NG tube. Patient uncooperative at this time. Tube placement unsuccessful. Dr. Aguilar aware. Family is at bedside, patient not conversationalist, however will yell profanities intermittently and pull against restraints.
[2022-11-26] MEDS: sodium chloride 0.9% 1,000 ML 75 ML IV (17:11)
[2022-11-26] MEDS: dextrose 50% syringe 50 mL IVP (17:45)
[2022-11-26] MEDS: dextrose 5 % 500 ML 100 ML IV (17:45)
--- NOTE | 2022-11-26 18:07 | PC.NURSE ---
Dr. Aguilar notified of low blood glucose and diaphoresis and that protocol was followed, See MAR. Orders to stop iv dextrose, and start precedex drip. Also notified of lower blood pressures, MAPs above 65, orders to continue monitoring. Patient is responsive to pain and will only verbalize profanity to staff at this time, still unable to complete oral intake.
[2022-11-26] MEDS: dexmedetomidine 400 MCG in sodium chloride 0.9% (100 ml) 100 ML IV (18:13)
[2022-11-26] MEDS: insulin glargine 100 units/1 mL 20 UNIT SUBCUT (18:14)
[2022-11-26 18:16] LABS: Glucose Point of Care 62 mg/dL (70-110)
[2022-11-26 18:16] LABS: Glucose Point of Care 241 mg/dL (70-110)
[2022-11-26] MEDS: lactulose oral liq 20 gm/30 mL UDC 200 GM PR (21:45)
[2022-11-26 23:03] LABS: Glucose Point of Care 97 mg/dL (70-110)
[2022-11-27] VITALS (26 sets, daily range): BP systolic 71–115; BP diastolic 52–96; PULSE 65–94; RESP 12–43; TEMP 36.4–36.9; O2SAT 92–98
[2022-11-27] MEDS: lactulose oral liq 20 gm/30 mL UDC 200 GM PR ×3 (03:15→15:04)
[2022-11-27] MEDS: vancomycin 1,250 MG/250 ML PIGGYBACK 250 MG IV (04:12)
[2022-11-27 04:13] LABS: Glucose Point of Care 105 mg/dL (70-110)
[2022-11-27 04:34] LABS: Basophils % 0.6 %; Eosinophils % 0.2 %; Hematocrit 33.7 % (42.0-52.0); Hemoglobin 12.3 g/dL (11.7-16.6); Lymphocytes # 2.2 10^3/uL (0.8-4.8); Lymphocytes % 44.1 %; Mean Corpuscular HGB Conc 36.5 g/dL (30.0-36.0); Mean Corpuscular Hemoglobin 33.3 pg (28.0-34.0); Mean Corpuscular Volume 91.3 fl (80-94); Mean Platelet Volume 11.2 fL (7.4-10.4); Monocytes # 0.5 10^3/uL (0.2-0.9); Monocytes % 10.5 %; Neutrophils # 2.16 10^3/uL (1.8-7.7); Neutrophils % 44.4 %; Nucleated Red Blood Cells % 0 %; Platelet Count 61 10^3/cmm (130-400); Red Blood Count 3.69 10^6/uL (4.1-5.3); Red Cell Distribution Width 14.2 % (12.1-15.1); White Blood Count 4.9 10^3/uL (4.0-10.0)
[2022-11-27 04:44] LABS: Ammonia 70 umol/L (16-60)
[2022-11-27 04:52] LABS: Alanine Aminotransferase 28 U/L (0-41); Albumin Level 2.1 g/dL (3.5-5.2); Alkaline Phosphatase 157 U/L (40-130); Anion Gap 11.2 (5-19); Aspartate Amino Transferase 43 U/L (0-40); Blood Urea Nitrogen 8 mg/dL (8-23); Calcium 7.8 mg/dL (8.5-10.5); Carbon Dioxide 20 mmol/L (22-29); Chloride 113 mmol/L (98-107); Globulin 3.2 g/dL (1.3-4.6); Glomerular Filtration Rate 305.8 mL/min (90-130); Glucose 124 mg/dL (65-115); Osmolality Calculated 292 mOsm/kg (285-295); Potassium 3.2 mmol/L (3.5-5.1); Sodium 141 mmol/L (136-145); Total Bilirubin 1.6 mg/dL (0.15-1.2); Total Protein 5.3 g/dL (6.6-8.7)
[2022-11-27 04:54] LABS: C Reactive Protein 9.4 mg/L (0.0-4.9); Chol HDL Ratio 2.55 mg/dL (1.0-5.00); Cholesterol 51 mg/dL (0-200); HDL Cholesterol 20 mg/dL (60-100); LDL Cholesterol Calculated 19 mg/dL (50-129); Magnesium 1.5 mg/dL (1.7-2.3); Triglycerides 61 mg/dL (0-150); VLDL Cholestrol Calculation 12 mg/dL (0-30)
[2022-11-27 05:14] LABS: Folate Level 6.9 ng/mL (4.5-32.2)
[2022-11-27 05:25] LABS: Slide Review Slide Review Perform
[2022-11-27] MEDS: sodium chloride 0.9% 1,000 ML 75 ML IV (06:14)
[2022-11-27] MEDS: doxycycline 100 MG in sodium chloride 0.9% (plus) 100 ML IV ×2 (06:15→18:00)
--- NOTE | 2022-11-27 06:26 | USCV_ITS ---
Poncho Marshall Age: 62 Gender: M : 1960 Exam Date: 11/27/2022 12:48 Ordering Phys: Opal Denis MD Technologist: ZI Exam [place] [facility] [place] Indication: chf BP: / HR: 47 Rhythm: Sinus Technical Quality: MEASUREMENTS (Male / Female) Normal Values 2D ECHO LV Diastolic Diameter PLAX 5.9 cm 4.2 - 5.9 / 3.9 - 5.3 cm LV Systolic Diameter PLAX 3.5 cm IVS Diastolic Thickness 0.8 cm 0.6 - 1.0 / 0.6 - 0.9 cm IVS Systolic Thickness 1.3 cm LVPW Diastolic Thickness 1.0 cm 0.6 - 1.0 / 0.6 - 0.9 cm LVPW Systolic Thickness 1.1 cm LVOT Diameter 2.5 cm LV Ejection Fraction 2D Teich 69.6 % LV Ejection Fraction MOD 2C 54.2 % LV Ejection Fraction 2C AL 54.1 % LA Diameter 4.2 cm M-MODE Aortic Annulus Diameter 3.3 cm LA Ao Ratio MM 1.4 MV E Point Septal Separation 0.7 cm DOPPLER MV Area PHT 4.2 cm squared Mitral E to A Ratio 2.7 MV E' Velocity 59.5 cm/s Mitral E to MV E' Ratio 6.0 Mitral E to LV E' Lateral Ratio 5.5 Mitral E to LV E' Septal Ratio 6.7 TR Peak Velocity 227.0 cm/s TR Peak Gradient 20.6 mmHg TV Peak E Velocity 73.0 cm/s Right Atrial Pressure 6.0 mmHg Pulmonary Artery Systolic Pressu 26.6 mmHg FINDINGS Left Ventricle Study is poor in quality. The apical view is the only reasonable view. The ventricle is probably normal in size and function. Ejection fraction is likely 65%. There are no obvious wall motion disturbances. Grade 1 diastolic dysfunction. Right Ventricle Normal right ventricular size and systolic function. Normal right ventricular systolic pressure. Right Atrium The right atrium is normal in size. Left Atrium Mildly increased left atrial size. Mitral Valve Mitral valve not well visualized. Trace mitral valve regurgitation. Aortic Valve Aortic valve not well visualized. Tricuspid Valve Tricuspid valve not well visualized. Trace tricuspid valve regurgitation. Pulmonic Valve Pulmonic valve not well visualized. Pericardium Normal pericardium without effusion. Aorta Normal ascending aorta dimension. IVC Inferior vena cava not visualized. CONCLUSIONS Study is poor in quality. The apical view is the only reasonable view. The ventricle is probably normal in size and function. Ejection fraction is likely 65%. There are no obvious wall motion disturbances. Grade 1 diastolic dysfunction. Mitral valve not well visualized. Trace mitral valve regurgitation. There are no prior echocardiogram studies to compare. Dr. Ollie Yeager MD (Electronically Signed) Final Date: 28 November 2022 08:57 S
[2022-11-27 07:42] LABS: Glucose Point of Care 129 mg/dL (70-110)
[2022-11-27 07:44] LABS: Glucose Point of Care 368 mg/dL (70-110)
[2022-11-27 07:51] LABS: Glucose Point of Care 111 mg/dL (70-110)
[2022-11-27 08:20] LABS: Glucose 132 mg/dL (65-115)
[2022-11-27] MEDS: dexmedetomidine 400 MCG in sodium chloride 0.9% (100 ml) 100 ML 6.02 MCG IV (08:26)
[2022-11-27] MEDS: albumin 25 G/100 ML BAG 60 G IV ×2 (10:47→17:59)
[2022-11-27] MEDS: magnesium sulfate premix 2 GM/50 ML PIGGYBACK IV (10:47)
[2022-11-27] MEDS: cefTRIAXone 1,000 MG in sodium chloride 0.9% (plus) 50 ML 100 MG IV (10:48)
[2022-11-27] MEDS: lactulose oral liq 20 gm/30 mL UDC 10 GM PO ×3 (10:58→21:30)
[2022-11-27] MEDS: potassium chloride ER 20 mEq Tablet 40 MEQ PO (10:59)
[2022-11-27] MEDS: sodium chloride 0.9% 500 ML 999 ML IV (11:26)
[2022-11-27 12:16] LABS: Vancomycin Trough 16.5 ug/mL (10-15)
[2022-11-27 12:27] LABS: Glucose Point of Care 114 mg/dL (70-110)
[2022-11-27 12:28] LABS: HEP C RNA Viral Load Quant 3190000 IU/mL (NOT DETECTED)
[2022-11-27] MEDS: sodium chloride 0.9% 1,000 ML 999 ML IV ×2 (12:46→14:03)
--- NOTE | 2022-11-27 14:16 | ECG_ITS ---
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 Measurements Intervals [place] Rate: 74 P: 0 [place]: 0 QRS: 38 QRSD: 110 T: 6 QT: 406 QTc: 452 Interpretive Statements ATRIAL FIBRILLATION WITH ABERRANT CONDUCTION OR VENTRICULAR PREMATURE COMPLEXES LOW QRS VOLTAGE IN EXTREMITY LEADS [QRS DEFLECTION < 0.5 mV IN LIMB LEADS] ABNORMAL RHYTHM ECG Compared to ECG 11/26/2022 08:14:45 Low QRS voltage now present Electronically Signed On 11-28-2022 11:27:15 CDT by Ollie Yeager M.D. [id number]
[2022-11-27] MEDS: sodium chloride 0.9% 1,000 ML 125 ML IV ×2 (16:23→23:19)
--- NOTE | 2022-11-27 17:18 | P.PN_ITS ---
Subjective Subjective: No acute events overnight. Today morning examination patient more awake and alert though still slightly drowsy. On Precedex at 0.3. During the day Precedex is turned down to 0.1 and patient's mentation improved. Soft blood pressures overnight with systolic in low 90s. Cheetah exam was done as patient was found to be fluid responsive with SVI delta of 29. Patient was given 2 L of septic bolus fluids after which his blood pressures improved with systolic persistently over 100 and mentation improving as well. Patient remains on room air. Blood work today morning shows resolution of neutropenia and leukopenia, persistent thrombocytopenia down to 61,000, stable hemoglobin, CMP showing h ypokalemia to 3.2, creatinine 0.3, hypomagnesemia 1.5, mild improvement in hyperbilirubinemia down to 1.6, ammonia level is down to 70, CSF studies appreciated. Vitals/I&O/Wt Last Vital Signs Temp 97.8 F 11/27/22 13:00 Pulse 85 11/27/22 16:03 Resp 21 H 11/27/22 16:00 BP 109/74 11/27/22 16:00 Pulse Ox 92 11/27/22 16:00 O2 Del Method Room Air 11/27/22 16:00 FiO2 40 11/26/22 07:35 11/27/22 11/27/22 11/27/22 06:59 14:59 22:59 Intake Total 2083.575 / 4775.996 2651.329 / 2651.329 1667.5 / 4318.829 Output Total 657 / 1312 Balance 1426.575 / 3463.996 2651.329 / 2651.329 1667.5 / 4318.829 Weight last 48 hrs Weight 77.111 kg Physical Exam Narrative: General: No acute distress, AAOx3, slow to respond, slightly drowsy HEENT: PERRLA, pupils bilaterally equal and reactive, poor oral hygiene Chest: Normal vesicular breath sounds all over lung mann with occasional rhon chi CVS: S1-S2 regular, no murmurs, no tachycardia, no gallops, no rubs Abdomen: Soft, nontender, no organomegaly, bowel sounds present, morbidly obese Neuro: Moving all limbs, no focal deficit Urinary Catheter Management: Elizabeth: Cath Placed During This Visit: yes Reason for Continuing Indwelling Catheter: Accurate Measurement of Urinary Output in Critically Ill Patients Urinary Catheter Date of Insertion: 11/26/22 Urinary Catheter Time of Insertion: 12:54 Data 11/27/22 04:14 11/27/22 07:50 Micro: Microbiology 11/26/22 11:40 Gram Stain - Final Cerebrospinal Fluid CSF Culture - Preliminary Cryptococcal Antigen (CSF) - Final 11/26/22 10:31 MRSA Culture - Final Nose 11/26/22 05:21 Blood Culture - Preliminary Blood NEGATIVE TO DATE 11/26/22 05:15 Blood Culture - Preliminary Blood NEGATIVE TO DATE 11/26/22 12:02 Bacterial Antigens - Final Cerebrospinal Fluid A&P Assessment and plan (1) AMS (altered mental status): (2) Hyperammonemia: (3) Transaminitis: (4) Thrombocytopenia: (5) Neutropenia: (6) Hyperglycemia: (7) Type 2 diabetes mellitus: (8) Hepatitis C: (9) Liver cirrhosis: Plan A 70-year-old gentleman who was brought in through the nursing home for altered mental status and hyperglycemia found to have leukocytopenia, neutropenia, thrombocytopenia along with transaminitis and elevated ammonia levels. Assessment: Acute metabolic encephalopathy Hepatic encephalopathy Transaminitis Thrombocytopenia/leukocytopenia/neutropenia Uncontrolled type 2 diabetes mellitus with hyperglycemia without DKA Plan: Metabolic encephalopathy most likely in setting of hepatic encephalopathy but given the presentation with thrombocytopenia, neutropenia along with transaminitis cannot rule out meningitis versus TTP especially given history of multiple tick bites recently which were treated with doxycycline few months ago. Lumbar puncture done yesterday without any difficulties. CSF studies appreciated with WBCs of around 2, elevated glucose and protein. Bacterial meningitis unlikely. CSF cultures negative so far. MRSA swab negative, blood cultures so far negative. HIV, VDRL negative. CSF studies awaited. Stop vancomycin, switch to ceftriaxone 1 g IV daily. Continue with IV doxycycline. Ammonia levels improving to 60. Continue with oral lactulose 10 every 6 hourly. Monitor bowel movements. Repeat ammonia levels in a.m. Wean Precedex drip as possible. Frequent reorientation. Increase normal saline to 125 cc/h. Keep mean artery pressure 65. If needed can start on Levophed drip. For now continue septic bolus as per fluid responsiveness seen on Cheetah exam. Monitor urine output. Hematological abnormalities along with transaminitis: Neutropenia and leukopenia resolved. Could be in setting of tick infection versus possible TTP versus possible dress syndrome in setting of new metformin though unlikely as metformin was just recently started. Peripheral smear pending, LDH normal, haptoglobin low most likely in setting of cirrhosis, DIC panel negative. Persistent thrombocytopenia. Post 1 unit of platelet transfusion. Monitor CBC daily. Monitor for bleeding. Cirrhosis: Chronic. Appreciated on CT scan. Management of ammonia levels as above. For uncontrolled type 2 diabetes mellitus: Blood sugars better controlled. Start on carb consistent diet. Insulin sliding scale at low-dose protocol before meals and at bedtime, Lantus 20 units daily. Carb consistent diet Full code Protonix for PUD prophylaxis Thrombocytopenia along with SCDs for DVT prophylaxis. Hold off on medical prophylaxis. Attestations Medical Necessity Statement*: Requires further hospitalization for management of acute metabolic encephalopathy, hepatic encephalopathy and transaminitis, thrombocytopenia along with leukopenia in a patient with high suspicion of tick borne meningitis versus infection. Coding Level of Care Code Critical Care >/= 30 minutes Critical care time (in minutes): 60 The high probability of a clinically significant, sudden or life threatening deterioration, as referenced in this documentation, required my full and direct attention, intervention and personal management. The critical care time shown is in addition to time spent performing any reported separately billable procedures and includes the following: [x] Data and vital sign review and interpretation [x ] Patient assessment, examination and intervention [x] Medication orders and management [x] Patient/Family updates as able [x] Care Coordination and Documentation. Diagnoses AMS (altered mental status) R41.82 Hyperammonemia E72.20 Transaminitis R74.01 Thrombocytopenia D69.6 Neutropenia D70.9 Hyperglycemia R73.9 Type 2 diabetes mellitus E11.9 Hepatitis C B19.20 Liver cirrhosis K74.60
[2022-11-27 17:44] LABS: Glucose Point of Care 283 mg/dL (70-110)
[2022-11-27] MEDS: insulin lispro 100 unit/1 mL SUBCUT ×2 (17:58→23:18)
[2022-11-27] MEDS: insulin glargine 100 units/1 mL 20 UNIT SUBCUT (17:59)
[2022-11-27] MEDS: trazodone 50 mg Tablet PO (21:29)
[2022-11-28] VITALS (26 sets, daily range): BP systolic 81–130; BP diastolic 53–108; PULSE 66–86; RESP 6–26; TEMP 36.7–36.8; O2SAT 89–100
[2022-11-28] MEDS: albumin 25 G/100 ML BAG 60 G IV ×3 (02:25→19:37)
[2022-11-28 04:15] LABS: Basophils % 0.3 %; Eosinophils % 0.3 %; Hematocrit 28.7 % (42.0-52.0); Hemoglobin 9.9 g/dL (11.7-16.6); Lymphocytes # 1.3 10^3/uL (0.8-4.8); Lymphocytes % 37.7 %; Mean Corpuscular HGB Conc 34.5 g/dL (30.0-36.0); Mean Corpuscular Hemoglobin 32.6 pg (28.0-34.0); Mean Corpuscular Volume 94.4 fl (80-94); Mean Platelet Volume 11.3 fL (7.4-10.4); Monocytes # 0.3 10^3/uL (0.2-0.9); Monocytes % 7.7 %; Neutrophils # 1.87 10^3/uL (1.8-7.7); Neutrophils % 53.4 %; Nucleated Red Blood Cells % 0 %; Platelet Count 53 10^3/cmm (130-400); Red Blood Count 3.04 10^6/uL (4.1-5.3); Red Cell Distribution Width 14.8 % (12.1-15.1); White Blood Count 3.5 10^3/uL (4.0-10.0)
[2022-11-28 04:23] LABS: Ammonia 69 umol/L (16-60)
[2022-11-28 04:32] LABS: Magnesium 1.5 mg/dL (1.7-2.3)
[2022-11-28 04:33] LABS: Alanine Aminotransferase 21 U/L (0-41); Albumin Level 2.7 g/dL (3.5-5.2); Alkaline Phosphatase 113 U/L (40-130); Anion Gap 13.2 (5-19); Aspartate Amino Transferase 34 U/L (0-40); Blood Urea Nitrogen 11 mg/dL (8-23); Calcium 7.7 mg/dL (8.5-10.5); Carbon Dioxide 18 mmol/L (22-29); Chloride 111 mmol/L (98-107); Globulin 2.2 g/dL (1.3-4.6); Glomerular Filtration Rate 169.6 mL/min (90-130); Glucose 99 mg/dL (65-115); Osmolality Calculated 287 mOsm/kg (285-295); Potassium 3.2 mmol/L (3.5-5.1); Sodium 139 mmol/L (136-145); Total Bilirubin 1.5 mg/dL (0.15-1.2); Total Protein 4.9 g/dL (6.6-8.7)
[2022-11-28] MEDS: lactulose oral liq 20 gm/30 mL UDC 10 GM PO ×4 (05:30→22:15)
[2022-11-28] MEDS: sodium chloride 0.9% 1,000 ML 125 ML IV (05:31)
[2022-11-28] MEDS: doxycycline 100 MG in sodium chloride 0.9% (plus) 100 ML IV ×2 (05:31→17:39)
[2022-11-28 05:33] LABS: Glucose Point of Care 294 mg/dL (70-110)
[2022-11-28 05:33] LABS: Glucose Point of Care 74 mg/dL (70-110)
[2022-11-28] MEDS: cefTRIAXone 1,000 MG in sodium chloride 0.9% (plus) 50 ML 100 MG IV (08:54)
[2022-11-28] MEDS: sennosides-docusate Tablet 1 TAB PO (08:58)
--- NOTE | 2022-11-28 09:23 | PC.NURSE ---
am brk served good appitite no c/o at this time . alert with only slight agitation
--- NOTE | 2022-11-28 11:30 | PC.NURSE ---
up in chair at this time blood pressure checked sitting up
[2022-11-28] MEDS: midodrine 5 mg TABLET PO ×3 (11:34→22:14)
[2022-11-28 12:16] LABS: Glucose Point of Care 316 mg/dL (70-110)
[2022-11-28] MEDS: insulin lispro 100 unit/1 mL SUBCUT ×4 (12:35→22:14)
--- NOTE | 2022-11-28 16:52 | P.PN_ITS ---
Subjective Subjective: No acute events overnight. Patient has remained stable. Blood pressures continue to remain on softer side to Miniter pressure around 65. Mostly systolic blood pressures have remained in the 90s. Urine output around 1500 cc in the last 24 hours. Patient is around 11 L positive since admission. Currently on Precedex at 0.1. More awake and alert. Following commands. No episodes of agitation. Denies any nausea, vomiting, headache. Blood work today shows white count of 3.5, hemoglobin of 9.9, platelet count 53,000, no neutropenia, CMP showing persistent hypokalemia of 3.2, creatinine of 0.5, blood sugar elevated, hypomagnesemia, bilirubin of 1.5 with resolution of transaminitis, ammonia levels of 69 and trending down. Overnight had episode of hypoglycemia which were treated with oral intake. Vitals/I&O/Wt Last Vital Signs Temp 98.2 F 11/28/22 11:29 Pulse 75 11/28/22 16:22 Resp 18 11/28/22 16:22 BP 112/78 11/28/22 16:22 Pulse Ox 98 11/28/22 16:22 O2 Del Method Room Air 11/28/22 09:51 FiO2 40 11/26/22 07:35 11/28/22 11/28/22 11/28/22 06:59 14:59 22:59 Intake Total 2121.667 / 7470.496 877.843 / 877.843 Output Total 682 / 1007 500 / 500 Balance 1439.667 / 6463.496 377.843 / 377.843 Physical Exam Narrative: General: No acute distress, AAOx3, slow to respond, slightly drowsy but improving than yesterday HEENT: PERRLA, pupils bilaterally equal and reactive, poor oral hygiene Chest: Normal vesicular breath sounds all over lung mann with occasional rhonchi CVS: S1-S2 regular, no murmurs, no tachycardia, no gallops, no rubs Abdomen: Soft, nontender, no organomegaly, bowel sounds present, morbidly obese Neuro: Moving all limbs, no focal deficit Urinary Catheter Management: Elizabeth: Cath Placed During This Visit: yes Reason for Continuing Indwelling Catheter: Accurate Measurement of Urinary Output in Critically Ill Patients Urinary Catheter Date of Insertion: 11/26/22 Urinary Catheter Time of Insertion: 12:54 Data 11/28/22 03:56 11/28/22 03:56 Micro: Microbiology 11/26/22 11:40 Gram Stain - Final Cerebrospinal Fluid CSF Culture - Preliminary Cryptococcal Antigen (CSF) - Final A&P Assessment and plan (1) AMS (altered mental status): (2) Hyperammonemia: (3) Transaminitis: (4) Thrombocytopenia: (5) Neutropenia: (6) Hyperglycemia: (7) Type 2 diabetes mellitus: (8) Hepatitis C: (9) Liver cirrhosis: Plan A 70-year-old gentleman who was brought in through the senior living for altered mental status and hyperglycemia found to have leukocytopenia, neutropenia, thrombocytopenia along with transaminitis and elevated ammonia levels. Assessment: Acute metabolic encephalopathy Hepatic encephalopathy Transaminitis/hepatitis C Thrombocytopenia/leukocytopenia/neutropenia Uncontrolled type 2 diabetes mellitus with hyperglycemia without DKA Plan: Metabolic encephalopathy most likely in setting of hepatic encephalopathy but given the presentation with thrombocytopenia, neutropenia along with t ransaminitis cannot rule out meningitis versus TTP especially given history of multiple tick bites recently which were treated with doxycycline few months ago. Lumbar puncture done yesterday without any difficulties. CSF studies appreciated with WBCs of around 2, elevated glucose and protein. Bacterial meningitis unlikely. CSF cultures negative so far. MRSA swab negative, blood cultures so far negative. HIV, VDRL negative. CSF studies awaited. Stop vancomycin, switch to ceftriaxone 1 g IV daily. Continue with IV doxycycline. Ammonia levels improving to 60. Continue with oral lactulose 10 every 6 hourly. Monitor bowel movements. Repeat ammonia levels in a.m. Wean Precedex drip as possible. Frequent reorientation. Increase normal saline to 125 cc/h. Keep mean artery pressure 65. If needed can start on Levophed drip. For now continue septic bolus as per fluid responsiveness seen on Cheetah exam. Monitor urine output. Hematological abnormalities along with transaminitis: Neutropenia and leukopenia resolved. Could be in setting of tick infection versus possible TTP versus possible dress syndrome in setting of new metformin though unlikely as metformin was just recently started. Peripheral smear pending, LDH normal, haptoglobin low most likely in setting of cirrhosis, DIC panel negative. Persistent thrombocytopenia. Post 1 unit of platelet transfusion. Monitor CBC daily. Monitor for bleeding. Cirrhosis: Chronic. Appreciated on CT scan. Management of ammonia levels as above. For uncontrolled type 2 diabetes mellitus: Blood sugars better controlled. Start on carb consistent diet. Insulin sliding scale at low-dose protocol before meals and at bedtime, Lantus 20 units daily. Carb consistent diet Full code Protonix for PUD prophylaxis Thrombocytopenia along with SCDs for DVT prophylaxis. Hold off on medical prophylaxis. Plan for today: Continue to follow-up cultures and CSF studies. For now continue with IV ceftriaxone 1 g daily and doxycycline 100 mg twice daily. Goal blood pressures 140/90 mmHg with mean over 65. Currently systolic on the lower end with borderline urine output so we will start on oral midodrine 5 mg 3 times daily. Hypotension could be in setting of liver cirrhosis and chronic transaminitis. Decrease fluid to 75 cc/h. Stop Lantus as patient having recurrent episodes of hypoglycemia. Continue with sliding scale before meals and at bedtime. We will restart Lantus as per insulin requirement and next 24 hours. Stop Precedex. Continue with home dose of trazodone. Continue with lactulose 10 mg every 6 hourly. Repeat ammonia levels in a.m. Out of bed to chair. PT evaluation. Continue ICU care for today. Attestations Medical Necessity Statement*: Requires further hospitalization for management of acute metabolic ence phalopathy in setting of hepatic encephalopathy while tickborne meningitis is ruled out, labile blood glucose levels in setting of new type 2 diabetes mellitus, leukopenia, thrombocytopenia while she is discharge planning is sought. Diagnoses AMS (altered mental status) R41.82 Hyperammonemia E72.20 Transaminitis R74.01 Thrombocytopenia D69.6 Neutropenia D70.9 Hyperglycemia R73.9 Type 2 diabetes mellitus E11.9 Hepatitis C B19.20 Liver cirrhosis K74.60
[2022-11-28] MEDS: magnesium sulfate premix 2 GM/50 ML PIGGYBACK IV (17:20)
[2022-11-28] MEDS: potassium chloride ER 20 mEq Tablet 80 MEQ PO (17:21)
[2022-11-28 17:49] LABS: Glucose Point of Care 238 mg/dL (70-110)
[2022-11-28 22:11] LABS: Glucose Point of Care 250 mg/dL (70-110)
[2022-11-28] MEDS: trazodone 50 mg Tablet PO (22:14)
[2022-11-28] MEDS: sodium chloride 0.9% 1,000 ML 75 ML IV (22:42)
[2022-11-29] VITALS (25 sets, daily range): BP systolic 107–137; BP diastolic 70–96; PULSE 67–108; RESP 13–28; TEMP 36.7–36.9; O2SAT 75–100
[2022-11-29 00:07] LABS: Glucose Point of Care 183 mg/dL (70-110)
[2022-11-29] MEDS: albumin 25 G/100 ML BAG 60 G IV (02:09)
[2022-11-29 03:42] LABS: Basophils % 0.4 %; Eosinophils % 0.4 %; Hematocrit 28.8 % (42.0-52.0); Hemoglobin 10.2 g/dL (11.7-16.6); Lymphocytes # 4.7 10^3/uL (0.8-4.8); Lymphocytes % 67.7 %; Mean Corpuscular HGB Conc 35.4 g/dL (30.0-36.0); Mean Corpuscular Hemoglobin 32.7 pg (28.0-34.0); Mean Corpuscular Volume 92.3 fl (80-94); Mean Platelet Volume 10.8 fL (7.4-10.4); Monocytes # 0.7 10^3/uL (0.2-0.9); Monocytes % 9.7 %; Neutrophils # 1.49 10^3/uL (1.8-7.7); Neutrophils % 21.5 %; Nucleated Red Blood Cells % 0 %; Platelet Count 53 10^3/cmm (130-400); Red Blood Count 3.12 10^6/uL (4.1-5.3); Red Cell Distribution Width 14.9 % (12.1-15.1); White Blood Count 6.9 10^3/uL (4.0-10.0)
[2022-11-29] MEDS: lactulose oral liq 20 gm/30 mL UDC 10 GM PO ×4 (03:51→21:32)
[2022-11-29 04:06] LABS: Ammonia 28 umol/L (16-60)
[2022-11-29 04:09] LABS: Alanine Aminotransferase 21 U/L (0-41); Alkaline Phosphatase 133 U/L (40-130); Anion Gap 11.6 (5-19); Aspartate Amino Transferase 43 U/L (0-40); Blood Urea Nitrogen 9 mg/dL (8-23); Calcium 7.8 mg/dL (8.5-10.5); Carbon Dioxide 20 mmol/L (22-29); Chloride 110 mmol/L (98-107); Globulin 2.3 g/dL (1.3-4.6); Glomerular Filtration Rate 219.4 mL/min (90-130); Glucose 119 mg/dL (65-115); Osmolality Calculated 286 mOsm/kg (285-295); Potassium 3.6 mmol/L (3.5-5.1); Sodium 138 mmol/L (136-145); Total Bilirubin 1.8 mg/dL (0.15-1.2); Total Protein 5.3 g/dL (6.6-8.7)
[2022-11-29 04:11] LABS: Magnesium 1.6 mg/dL (1.7-2.3)
[2022-11-29 04:49] LABS: Slide Review Slide Review Perform
[2022-11-29] MEDS: doxycycline 100 MG in sodium chloride 0.9% (plus) 100 ML IV ×2 (05:20→17:41)
[2022-11-29] MEDS: cefTRIAXone 1,000 MG in sodium chloride 0.9% (plus) 50 ML 100 MG IV (08:49)
[2022-11-29] MEDS: midodrine 5 mg TABLET PO ×3 (08:50→21:32)
[2022-11-29] MEDS: sennosides-docusate Tablet 1 TAB PO (08:50)
[2022-11-29 11:17] LABS: Glucose Point of Care 309 mg/dL (70-110)
[2022-11-29 11:17] LABS: Glucose Point of Care 306 mg/dL (70-110)
[2022-11-29] MEDS: insulin lispro 100 unit/1 mL SUBCUT ×3 (11:38→21:32)
[2022-11-29] MEDS: sodium chloride 0.9% 1,000 ML 75 ML IV (14:14)
--- NOTE | 2022-11-29 15:06 | PC.NURSE ---
Bedside report received from JERONIMO Crespo. Pt denies pain or other needs at this time. Will continue to monitor.
[2022-11-29 17:00] LABS: Glucose Point of Care 332 mg/dL (70-110)
[2022-11-29 17:40] LABS: Lyme AB Screen <0.90 index
--- NOTE | 2022-11-29 18:44 | PC.NURSE ---
Shift summary: No issues today. Pt doing well. He gets up to the chair several times today. A-fib noted on the monitor this afternoon. Pt denies pain, states he feels much better. His platelet count remains low, 53 this am. Blood sugars 306 -332 mg/dl this shift. Pt and parents educated on health diabetic snacks. Urine output of 1350ml this shift.
[2022-11-29 19:52] LABS: Glucose Point of Care 421 mg/dL (70-110)
--- NOTE | 2022-11-29 20:15 | PM.PN ---
Subjective Subjective: Patient reports he is feeling better overall. Endorses diffuse weakness. His sugars remain severely uncontrolled. Denies nausea, emesis, fevers or chills Medications: Reviewed: Yes Vitals/I&O/Wt Last Vital Signs Temp 98.4 F 11/29/22 15:00 Pulse 89 11/29/22 19:25 Resp 16 11/29/22 19:25 BP 127/86 11/29/22 17:00 Pulse Ox 98 11/29/22 19:25 O2 Del Method Room Air 11/29/22 19:25 FiO2 40 11/26/22 07:35 11/29/22 11/29/22 11/29/22 06:59 14:59 22:59 Intake Total 100 / 3095.843 1410 / 1410 240 / 1650 Output Total 2550 / 3450 1925 / 1925 Balance -2450 / -076.521 1342 / 1410 -1685 / -275 Physical Exam Narrative: General: Patient is awake and alert. Head: Normocephalic. Atraumatic. EOM intact. Neck: No JVD. Cardiovascular: RRR. No gallops. No murmurs. No peripheral edema. Lungs: Clear to auscultation, no use of accessory muscles, no crackles or wheezes. Skin: No jaundice. No rashes. Abdomen: Normal bowel sounds, abdomen soft and nontender. Genito Urinary: Genital exam not performed since complaints not related. Rectal: Rectal exam not performed since no symptoms indicated blood loss. Extremities: No cyanosis or clubbing. Musculoskeletal: no swollen or erythematous joints. Neurological: Moves all 4 extremities. No myoclonus. Urinary Catheter Management: Elizabeth: Cath Placed During This Visit: yes Reason for Continuing Indwelling Catheter: Accurate Measurement of Urinary Output in Critically Ill Patients Urinary Catheter Date of Insertion: 11/26/22 Urinary Catheter Time of Insertion: 12:54 Data 11/29/22 03:30 11/29/22 03:30 Micro: Microbiology 11/26/22 11:40 Gram Stain - Final Cerebrospinal Fluid CSF Culture - Final Cryptococcal Antigen (CSF) - Final A&P Assessment and plan (1) AMS (altered mental status): Acute metabolic encephalopathy, improving Hepatic encephalopathy, improving Continue ceftriaxone and doxycycline Follow-up infectious labs, will likely need to be outpatient (2) Liver cirrhosis: Likely secondary to hep C (3) Hepatitis C: Will need to establish with gastroenterology as outpatient (4) Transaminitis: Improving (5) Hyperammonemia: Improved (6) Thrombocytopenia: Likely related to cirrhosis Continue to monitor (7) Type 2 diabetes mellitus: Uncontrolled with hyperglycemia (8) Hyperglycemia: Blood glucose remains uncontrolled Start Lantus tonight (9) Neutropenia: Improving, Continue to monitor Plan DVT prophylaxis: CODE STATUS: Full code Attestations Medical Necessity Statement*: Patient requires ongoing hospitalization for IV antibiotics, infectious labs, and supportive care. Coding Level of Care Code Acute Code for Chg Fwd Diagnoses AMS (altered mental status) R41.82 Liver cirrhosis K74.60 Hepatitis C B19.20 Transaminitis R74.01 Hyperammonemia E72.20 Thrombocytopenia D69.6 Type 2 diabetes mellitus E11.9 Hyperglycemia R73.9 Neutropenia D70.9
[2022-11-29] MEDS: trazodone 50 mg Tablet PO (21:33)
[2022-11-29] MEDS: insulin glargine 100 units/1 mL 10 UNIT SUBCUT (21:33)
[2022-11-29 22:15] LABS: VDRL on CSF NON-REACTIVE
[2022-11-30] VITALS (8 sets, daily range): BP systolic 108–120; BP diastolic 70–85; PULSE 78–100; RESP 12–23; TEMP 36.9–37.1; O2SAT 97–100
[2022-11-30] MEDS: lactulose oral liq 20 gm/30 mL UDC 10 GM PO (04:18)
[2022-11-30] MEDS: sodium chloride 0.9% 1,000 ML 75 ML IV (04:20)
[2022-11-30 05:09] LABS: Basophils % 0.4 %; Eosinophils # 0.1 10^3/uL (0.0-0.8); Eosinophils % 1.3 %; Hematocrit 27.2 % (42.0-52.0); Hemoglobin 9.7 g/dL (11.7-16.6); Lymphocytes # 3.4 10^3/uL (0.8-4.8); Mean Corpuscular HGB Conc 35.7 g/dL (30.0-36.0); Mean Corpuscular Hemoglobin 33.1 pg (28.0-34.0); Mean Corpuscular Volume 92.8 fl (80-94); Mean Platelet Volume 10.7 fL (7.4-10.4); Monocytes # 0.6 10^3/uL (0.2-0.9); Monocytes % 11.6 %; Neutrophils # 1.18 10^3/uL (1.8-7.7); Neutrophils % 22.5 %; Nucleated Red Blood Cells % 0 %; Platelet Count 54 10^3/cmm (130-400); Red Blood Count 2.93 10^6/uL (4.1-5.3); Red Cell Distribution Width 14.6 % (12.1-15.1); White Blood Count 5.3 10^3/uL (4.0-10.0)
[2022-11-30] MEDS: doxycycline 100 MG in sodium chloride 0.9% (plus) 100 ML IV (05:40)
[2022-11-30 05:44] LABS: Alanine Aminotransferase 21 U/L (0-41); Albumin Level 2.7 g/dL (3.5-5.2); Alkaline Phosphatase 180 U/L (40-130); Anion Gap 10.6 (5-19); Aspartate Amino Transferase 40 U/L (0-40); Blood Urea Nitrogen 12 mg/dL (8-23); Calcium 7.9 mg/dL (8.5-10.5); Carbon Dioxide 22 mmol/L (22-29); Chloride 105 mmol/L (98-107); Globulin 2.3 g/dL (1.3-4.6); Glomerular Filtration Rate 169.6 mL/min (90-130); Glucose 192 mg/dL (65-115); Osmolality Calculated 283 mOsm/kg (285-295); Potassium 3.6 mmol/L (3.5-5.1); Sodium 134 mmol/L (136-145); Total Bilirubin 1.7 mg/dL (0.15-1.2)
[2022-11-30 05:45] LABS: Slide Review Slide Review Perform
[2022-11-30 08:02] LABS: Glucose Point of Care 232 mg/dL (70-110)
[2022-11-30 08:14] LABS: Glucose Point of Care 175 mg/dL (70-110)
[2022-11-30] MEDS: insulin lispro 100 unit/1 mL SUBCUT ×2 (09:07→12:19)
[2022-11-30] MEDS: sennosides-docusate Tablet 1 TAB PO (09:08)
[2022-11-30] MEDS: midodrine 5 mg TABLET PO (09:08)
[2022-11-30] MEDS: cefTRIAXone 1,000 MG in sodium chloride 0.9% (plus) 50 ML 100 MG IV (09:08)
--- NOTE | 2022-11-30 11:01 | P.DS_ITS ---
Discharge Providers Date of Admission: 11/26/22 04:54 Date of Discharge: November 30, 2022 Attending Provider at Admission: Opal Denis MD Attending Provider at Discharge: Luis Hinkle MD Diagnoses at Discharge Discharge Diagnosis (1) AMS (altered mental status): Status: Acute (2) Liver cirrhosis: Status: Acute (3) Hepatitis C: Status: Acute (4) Transaminitis: Status: Acute (5) Hyperammonemia: Status: Acute (6) Thrombocytopenia: Status: Acute (7) Type 2 diabetes mellitus: Status: Acute (8) Hyperglycemia: Status: Acute (9) Neutropenia: Status: Acute Reason for Visit Reason for Visit: HIGH BLOOD SUGAR Hospital Course Hospital Course Poncho Marshall is a 62-year-old male with a past medical history significant for type 2 diabetes mellitus diagnosed 2 years ago, hepatitis C, and liver cirrhosis who presents from retirement with altered mental status and severe hyperglycemia. Upon admission, patient found to have acute metabolic encephalopathy with neutropenia and transaminitis. Further history revealed significant tick exposure. Patient was treated with broad-spectrum antibiotics and narrowed to ceftriaxone and doxycycline, and rotated to oral equivalents consisting of cefdinir and doxycycline at discharge. He has multiple infectious labs including tick panel which is pending at the time of discharge. Patient instructed to follow-up with his primary care provider for results. Patient has a known history of type 2 diabetes mellitus diagnosed 2 years ago. His type 2 diabetes mellitus is severely uncontrolled with severe hyperglycemia. His A1c was found to be 13.8 which correlates to an average glucose of 349. Patient was extensively educated on type 2 diabetes mellitus as well as insulin administration. He was started on Lantus. Goal was to lower blood sugar and A1c modestly as to avoid relative hypoglycemia. Patient was also started on metformin at discharge. He reported that he has 3 glucometers at home with supplies and knows how to use them. He was instructed to keep blood glucose log. His diabetes regiment will need multiple titrations as time goes on this year. He is to follow-up with with his primary care provider for further his diabetes care. Patient has hepatitis C with liver cirrhosis with subsequent thrombocytopenia. He was found to have elevated ammonia during his admission treated with lactulo se. He will be referred to heel brusher. Patient preferred to follow-up with his primary care provider to discuss referral. Physical Exam 2 Narrative: General: Patient is awake and alert. Head: Normocephalic. Atraumatic. EOM intact. Poor dentition. Neck: No JVD. Cardiovascular: RRR. No gallops. No murmurs. Lungs: Clear to auscultation, no use of accessory muscles, no crackles or wheezes. Skin: No jaundice. No rashes. Abdomen: Normal bowel sounds, abdomen soft and nontender. Extremities: No cyanosis or clubbing. Neurological: Moves all 4 extremities. No myoclonus. Urinary Catheter Management: Elizabeth: Cath Placed During This Visit: yes Reason for Continuing Indwelling Catheter: Accurate Measurement of Urinary Output in Critically Ill Patients Urinary Catheter Date of Insertion: 11/26/22 Urinary Catheter Time of Insertion: 12:54 Discharge Data Studies Completed and Pending Completed Studies During Hospitalization Category Date Time Status CT abdomen pelvis wo con [id number] Stat Cat Scan 11/26/22 04:[address] angio head neck [CT angio headneck* [id number]] Cat Scan 11/26/22 03:[address] head wo con* [id number] Stat Cat Scan 11/26/22 03:44 Completed CXRP [XR chest 1V portable [id number]] Stat Exams 11/26/22 03:44 Completed FL guided lumbarpunc dx* [id number] Routine Exams 11/26/22 10:08 Completed CV. echo complete* [id number] Routine Ultrasound 11/27/22 06:26 Completed Pending at discharge Category Date Time Status AFB [Mycobacteria, Culture w/Fluor] Stat Lab 11/26/22 11:40 Received Blood Culture Stat Lab 11/26/22 05:21 Results Complete Blood Count w/Auto AM LABS Lab 12/01/22 04:00 Ordered Comprehensive Metabolic Panel AM LABS Lab 12/01/22 04:00 Ordered Fibrinogen Degradation Product Routine Lab 11/26/22 11:04 Received Francisella Tularensis DA Routine Lab 11/27/22 04:14 Received Lymes Disease Antibodies CSF Stat Lab 11/26/22 11:40 Received Tick Panel Stat Lab 11/26/22 03:48 Results West Nile Virus AB Panel,CSF Stat Lab 11/26/22 11:40 Received Radiology Impressions Chest X-Ray 11/26/22 03:44 IMPRESSION: There are low lung volumes. Otherwise, the lungs are clear. Head CT 11/26/22 03:44 IMPRESSION: No acute infarct or hemorrhage. ASSESSMENT: ASPECTS (Agustina Stroke Program Early CT Score) is 10. Head/Neck CTA 11/26/22 03:44 IMPRESSION: No large vessel occlusion or stenosis. IMPRESSION: No vascular stenosis, occlusion or dissection. REFERENCES: NASCET CRITERIA. The degree of stenosis in the cervical segment of the internal carotid artery is based on NASCET criteria. Normal is no stenosis. Mild is less than 50% stenosis. Moderate is 50-69% stenosis. Severe is 70% to 99% stenosis. Total occlusion is no detectable patent lumen. Abdomen/Pelvis CT 11/26/22 04:55 IMPRESSION: 1. Micronodular contour to the liver which suggests cirrhosis. In addition there is splenomegaly and probable gastric and splenic varicosities. Findings are suggestive of cirrhosis with portal venous hypertension. 2. Large amount of stool throughout the colon. Laboratory Results WBC 5.3 10^3/uL (4.0-10.0) 11/30/22 04:59 RBC 2.93 10^6/uL (4.1-5.3) L 11/30/22 04:59 Hgb 9.7 g/dL (11.7-16.6) L 11/30/22 04:59 Hct 27.2 % (42.0-52.0) L 11/30/22 04:59 MCV 92.8 fl (80-94) 11/30/22 04:59 MCH 33.1 pg (28.0-34.0) 11/30/22 04:59 MCHC 35.7 g/dL (30.0-36.0) 11/30/22 04:59 RDW 14.6 % (12.1-15.1) 11/30/22 04:59 Plt Count 54 10^3/cmm (130-400) L 11/30/22 04:59 MPV 10.7 fL (7.4-10.4) H 11/30/22 04:59 Neut % (Auto) 22.5 % 11/30/22 04:59 Lymph % (Auto) 64.0 % 11/30/22 04:59 [place] % (Auto) 11.6 % 11/30/22 04:59 Eos % (Auto) 1.3 % 11/30/22 04:59 Baso % (Auto) 0.4 % 11/30/22 04:59 Neut # (Auto) 1.18 10^3/uL (1.8-7.7) L 11/30/22 04:59 Lymph # (Auto) 3.4 10^3/uL (0.8-4.8) 11/30/22 04:59 [place] # (Auto) 0.6 10^3/uL (0.2-0.9) 11/30/22 04:59 Eos # (Auto) 0.1 10^3/uL (0.0-0.8) 11/30/22 04:59 Baso # (Auto) 0.0 10^3/uL (0.0-0.1) 11/30/22 04:59 Nucleated RBC % (auto) 0 % 11/30/22 04:59 Nucleated RBCs # 0.0 /100WBC 11/30/22 04:59 Haptoglobin 10.0 mg/L (30-200) L 11/26/22 09:45 PT 19.10 SECONDS (12.1-14.9) H 11/26/22 11:04 INR 1.55 (0.8-1.2) H 11/26/22 11:04 APTT 32.5 SECONDS (23.9-36.7) 11/26/22 11:04 Fibrinogen 200 mg/dL (174-498) 11/26/22 11:04 Fibrin Degrad Products Not Reportable 11/26/22 11:04 D-Dimer 0.79 ug/mIFEU (0-0.59) H 11/26/22 11:04 Specimen Type Arterial 11/26/22 04:25 Sample Site Radial, right 11/26/22 04:25 ABG pH 7.40 (7.35-7.45) 11/26/22 04:25 ABG pCO2 36.5 mmHg (35-45) 11/26/22 04:25 ABG pO2 85.5 mmHg (80.0-100.0) 11/26/22 04:25 ABG HCO3 22.5 mmol/L (22-26) 11/26/22 04:25 ABG Base Excess -1.9 mmol/L (-2.0-2.0) 11/26/22 04:25 Nestor Test Pos 11/26/22 04:25 Hematocrit 35.0 % (42-52) L 11/26/22 04:25 O2 Delivery Device None 11/26/22 04:25 FiO2 21.0 % 11/26/22 04:25 Die Technician ID [email or web address] 11/26/22 04:25 Sodium 134 mmol/L (136-145) L 11/30/22 04:59 Potassium 3.6 mmol/L (3.5-5.1) 11/30/22 04:59 Chloride 105 mmol/L (98-107) 11/30/22 04:59 Carbon Dioxide 22 mmol/L (22-29) 11/30/22 04:59 Anion Gap 10.6 (5-19) 11/30/22 04:59 BUN 12 mg/dL (8-23) 11/30/22 04:59 Creatinine 0.5 mg/dL (0.7-1.2) L 11/30/22 04:59 GFR Calculation 169.6 mL/min (90-130) H 11/30/22 04:59 Glucose 192 mg/dL (65-115) H 11/30/22 04:59 POC Glucose 175 mg/dL (70-110) H 11/30/22 07:31 Calculated Osmolality 283 mOsm/kg (285-295) L 11/30/22 04:59 Calcium 7.9 mg/dL (8.5-10.5) L 11/30/22 04:59 Magnesium 1.6 mg/dL (1.7-2.3) L 11/29/22 03:30 Iron 68 ug/dL (59-158) 11/26/22 09:45 TIBC 173 mcg/dl 11/26/22 09:45 % Saturation 39.3 % (20-50) 11/26/22 09:45 Unsat Iron Binding 105 ug/dL (112-347) L 11/26/22 09:45 Total Bilirubin 1.7 mg/dL (0.15-1.2) H 11/30/22 04:59 AST 40 U/L (0-40) 11/30/22 04:59 ALT 21 U/L (0-41) 11/30/22 04:59 Alkaline Phosphatase 180 U/L (40-130) H 11/30/22 04:59 Ammonia 28 umol/L (16-60) 11/29/22 03:30 Lactate Dehydrogenase 196 U/L (135-225) 11/26/22 09:45 Troponin T Baseline 10 ng/L (0-15) 11/26/22 03:48 Troponin T 120 Minute 7.82 ng/L (0-15) 11/26/22 05:21 Delta Troponin T -2.18 ABS# (0-10) L 11/26/22 05:21 Troponin T Hi Sens 6Hr 13.84 ng/L (0-15) 11/26/22 09:45 Troponin T Hi Sens 6Hr Delta 3.84 ng/L (0-12) 11/26/22 09:45 C-Reactive Protein 9.4 mg/L (0.0-4.9) H 11/27/22 04:14 NT-Pro-B Natriuret Pep 1189 pg/mL (0-125) H 11/26/22 03:48 Total Protein 5.0 g/dL (6.6-8.7) L 11/30/22 04:59 Albumin 2.7 g/dL (3.5-5.2) L 11/30/22 04:59 Globulin 2.3 g/dL (1.3-4.6) 11/30/22 04:59 Triglycerides 61 mg/dL (0-150) 11/27/22 04:14 Cholesterol 51 mg/dL (0-200) 11/27/22 04:14 LDL Cholesterol, Calc 19 mg/dL (50-129) L 11/27/22 04:14 Total VLDL Cholesterol 12 mg/dL (0-30) 11/27/22 04:14 HDL Cholesterol 20 mg/dL (60-100) L 11/27/22 04:14 Cholesterol/HDL Ratio 2.55 mg/dL (1.0-5.00) 11/27/22 04:14 Tumor Marker AFP 3.6 ng/mL (0-8.3) 11/26/22 03:48 Vitamin B12 > 2000 pg/mL (232-1245) H 11/26/22 09:45 Folate 6.9 ng/mL (4.5-32.2) 11/27/22 04:14 Procalcitonin 0.24 ng/mL (0-0.5) 11/26/22 09:45 TSH 3.66 uIU/mL (0.27-4.20) 11/26/22 05:21 Urine Color Yellow (Yellow) 11/26/22 04:02 Urine Appearance Clear (CLEAR) 11/26/22 04:02 Urine pH 7 (5-7) 11/26/22 04:02 Ur Specific [place] 1.010 (1.005-1.030) 11/26/22 04:02 Urine Protein Neg (Negative) 11/26/22 04:02 Urine Glucose (UA) 4+ (Normal) H 11/26/22 04:02 Urine Ketones Negative (Negative) 11/26/22 04:02 Urine Blood Neg (Negative) 11/26/22 04:02 Urine Nitrate Negative (Negative) 11/26/22 04:02 Urine Bilirubin Neg (Negative) 11/26/22 04:02 Urine Urobilinogen Neg mg/dL (Negative) 11/26/22 04:02 Ur Leukocyte Esterase Negative (Negative) 11/26/22 04:02 CSF Appearance Clear (CLEAR) 11/26/22 11:40 CSF Color Colorless (COLORLESS) 11/26/22 11:40 CSF Specific [place] 1.007 11/26/22 11:40 CSF WBC 2 /uL (0-5) 11/26/22 11:40 CSF RBC 0 10^3/uL (0-0) 11/26/22 11:40 CSF Mononuclear # Auto 0.001 10^3/uL (50-90) L 11/26/22 11:40 CSF Mononuclear WBCs % 50 % (50-90) 11/26/22 11:40 CSF Polynuclear WBCs # 0.001 10^3/uL (0-10) 11/26/22 11:40 CSF Polynuclear WBCs % 50 % (0-10) H 11/26/22 11:40 CSF Glucose 240 mg/dL (40-70) H 11/26/22 11:40 CSF Total Protein 62 mg/dL (15-45) H 11/26/22 11:40 CSF VDRL Non-reactive 11/26/22 11:40 Vancomycin Trough 16.5 ug/mL (10-15) H 11/27/22 11:02 Urine Opiates Screen Negative ng/mL (Negative) 11/26/22 04:02 Ur Barbiturates Screen Negative ng/mL (Negative) 11/26/22 04:02 Ur Phencyclidine Scrn Negative ng/mL (Negative) 11/26/22 04:02 Ur Amphetamines Screen Negative ng/mL (Negative) 11/26/22 04:02 U Benzodiazepines Scrn Negative ng/mL (Negative) 11/26/22 04:02 Urine Cocaine Screen Negative ng/mL (Negative) 11/26/22 04:02 U Marijuana (THC) Screen Negative ng/mL (Negative) 11/26/22 04:02 Ethyl Alcohol < 10 mg/dL (0-10) 11/26/22 03:48 RPR Nonreactive (Nonreactive) 11/26/22 07:02 Lyme Ab (Western Blot) <0.90 index 11/26/22 03:48 Hepatitis A IgM Ab Non-reactive (Nonreactive) 11/26/22 07:02 Hep Bs Antigen Non-reactive (Nonreactive) 11/26/22 07:02 Hep Bs Antibody 103.2 (11.5-1000) 11/26/22 07:02 Hep B Core Total Ab Non-reactive (Nonreactive) 11/26/22 07:02 Hepatitis C Antibody Reactive (Nonreactive) H 11/26/22 07:02 HCV RNA (PCR) IUs/ml 6.50 Log IU/mL (NOT DETECTED) H 11/26/22 08:11 HCV RNA (PCR) IU log10 [id number] IU/mL (NOT DETECTED) H 11/26/22 08:11 HIV 1&2 Ab & HIV 1 Ag Non-reactive (Non-Reactiv) 11/26/22 07:02 HIV 1&2 Antibody Non-reactive (Non-Reactiv) 11/26/22 07:02 Blood Type B Positive 11/26/22 11:04 Rho(D) Type Positive 11/26/22 11:04 Antibody Screen Negative 11/26/22 11:04 Vitals Last Vital Signs Temp 98.5 F 11/30/22 04:00 Pulse 90 11/30/22 08:00 Resp 14 11/30/22 08:00 BP 119/85 11/30/22 08:00 Pulse Ox 98 11/30/22 08:00 O2 Del Method Room Air 11/30/22 08:00 FiO2 40 11/26/22 07:35 Discharge Plan Discharge Patient Disposition: Home Condition: Stable Prescriptions: New doxycycline hyclate 100 mg tablet 100 mg PO BID 7 Days Qty: 14 0RF cefdinir 300 mg capsule 300 mg PO BID 7 Days Qty: 14 0RF Lantus Solostar U-100 Insulin 100 unit/mL (3 mL) insulin pen 15 unit SUBCUT QPM 30 Days Qty: 4.5 1RF metformin 500 mg tablet 500 mg PO BID 30 Days Qty: 60 1RF Rx Instructions: May cause transient loose stool during week 1-2. Continued trazodone 50 mg tablet 50 mg PO BEDTIME carvedilol 6.25 mg Tablet 6.25 mg PO BID 30 Days Qty: 60 1RF Rx Instructions: must administer with a meal/food Discharge Orders: Discharge Order (Routine); Ordered 11/30/22 Ordered By: Luis Hinkle Referrals: [facility] [Other] - 12/06/22 11:40 am (We have notified your physician's clinic of the need for a follow-up appointment to be scheduled. If you have not heard from them within the next 2 business days, please call them directly. You may also reach out to our [facility] respiratory care specialist at [phone] and she can assist you. this follow up is as scheduled for date of : Tuesday ,December 06 for time of 11:45 am ) Discharge Diet: Advance as tolerated, Diabetic and Low Salt Discharge Activity: Resume usual activity and Increase activity as tolerated Patient Instructions: Doxycycline (By mouth), Metformin (By mouth), Cefdinir (By mouth), Insulin Glargine (By injection) (Lantus, Lantus SoloStar, Toujeo, Semglee), Cirrhosis of the Liver (DC), Hepatitis C (DC), Meal Planning with Diabetes Exchanges (DC), Type 2 Diabetes Management for Adults (DC) Activity Restrictions/Additional Instructions: 1. Increase activity as tolerated. 2. Follow up with PCP. 3. Take medication as precribed. 4. Keep glucometer log and bring to PCP 5. Follow diabetic, heart healthy diet. Discharge Attestations Time Spent in Discharge Care*: greater than 30 min Status at Discharge: Overall status at discharge: patient is back to baseline Quality Metrics Clinical Quality Measures [ No reported AMI, CVA or VTE this stay] Coding Level of Care Code Acute Code for Chg Fwd Diagnoses AMS (altered mental status) R41.82 Liver cirrhosis K74.60 Hepatitis C B19.20 Transaminitis R74.01 Hyperammonemia E72.20 Thrombocytopenia D69.6 Type 2 diabetes mellitus E11.9 Hyperglycemia R73.9 Neutropenia D70.9
[2022-11-30 11:50] LABS: Glucose Point of Care 315 mg/dL (70-110)
--- NOTE | 2022-11-30 13:45 | PC.NURSE ---
All D/C instructions educated to patient, signed D/C form, MAURICIO at this time transported by dad
[2022-12-01 14:44] LABS: E. Chaffeensis AB IGG <1:64; E. Chaffeensis AB IGM <1:20; RMSF IGG NOT DETECTED; RMSF IGM NOT DETECTED
[2022-12-01 14:44] LABS: Lyme Disease AB (IGG),IBL NO BANDS DETECTED; Lyme Disease AB (IGM), IBL NO BANDS DETECTED; West Nile Virus AB (IGG) <1.30 index; West Nile Virus AB (IGM) <0.90 index
[2022-12-01 22:34] LABS: Francisella Tularensis DA <1:20 titer
[2022-12-01 23:49] LABS: Fibrinogen Degradation Product <5 mcg/mL (LESS THAN 5)
== END 2022-11-30 13:46 | disposition home or self-care (01) | DRG 637 ==
LOC: ER 05:10 → MEDSURG 05:18 → ICU 05:29
PROVIDERS: Student in an Organized Health Care Education/Training Program; Admitting Provider Internal Medicine; Emergency Provider Emergency Medicine; Visit Provider Internal Medicine
DX: E11.65 Type 2 diabetes mellitus with hyperglycemia (principal); G93.41 Metabolic encephalopathy; B19.20 Unspecified viral hepatitis C without hepatic coma; K74.60 Unspecified cirrhosis of liver; D70.9 Neutropenia, unspecified; D69.6 Thrombocytopenia, unspecified; Z79.891 Long term (current) use of opiate analgesic; R74.01 Elevation of levels of liver transaminase levels; E83.42 Hypomagnesemia
CPT/HCPCS: 36415; 36416; 36430; 36600; 51702; 62328; 70450; 70496; 70498; 71045; 74176; 80053; 80061; 80202; 80306; 80307; 80503; 81003; 82105; 82140; 82607; 82746; 82803; 82945; 82947; 82962; 83010; 83540; 83550; 83615; 83735; 83880; 84145; 84157; 84315; 84443; 84484; 85025; 85362; 85378; 85384; 85610; 85730; 86000; 86140; 86403; 86592; 86617; 86618; 86666; 86705; 86706; 86709; 86757; 86788; 86789; 86803; 86850; 86900; 87015; 87040; 87070; 87075; 87116; 87205; 87206; 87327; 87340; 87522; 87641; 87801; 87806; 89050; 93005; 93306; 96365; 96372; 96375; 96376; 97116; 97161; 99285; A4570; J0696; J1630; J1815; J2060; J3370; J3475; J3490; J7030; J7040; J7060; P9035; P9046; Q9967